=== PATIENT | female | born 1985 | race African-American/Black ===

== ENCOUNTER 2018-05-13 21:43 | Emergency (ER) | END 2018-05-13 22:39 | disposition left against medical advice (07) | LOC: ER 21:43 | DX: Z53.21 Procedure and treatment not carried out due to patient leaving prior to being seen by health care provider (principal) ==

== ENCOUNTER 2018-08-09 19:51 | Inpatient (IN) | payer BC, MEDICARE, MEDICAID ==
[2018-08-09] MEDS ORDERED: ACETAMINOPHEN 325 MG TABLET PO ONE (21:18)
[2018-08-09 21:42] LABS: INTERNATIONAL RATION (INR) 1.12
[2018-08-09 21:44] LABS: VENOUS BLOOD BASE EXCESS -1.5 mmol/L; VENOUS BLOOD HCO3 21.4 mmol/L (20-32); VENOUS BLOOD PCO2 30.5 mmHg (35-63); VENOUS BLOOD PH 7.46 (7.30-7.42)
[2018-08-09 21:44] LABS: ABSOLUTE LYMPHOCYTES (AUTO) 1.2 10^3/uL (0.5-4.7); ABSOLUTE MONOCYTES (AUTO) 0.7 10^3/uL (0.1-1.4); ABSOLUTE NEUT (AUTO) 8.1 10^3/uL (1.7-8.2); BASOPHILS % (AUTO) 0.1 % (0-2); HEMATOCRIT 36.6 % (36.0-47.0); HEMOGLOBIN 11.8 g/dL (12.0-15.5); LYMPHOCYTES % (AUTO) 11.7 % (13-45); MEAN CORPUSCULAR HEMOGLOBIN 26.6 pg (27.0-33.4); MEAN CORPUSCULAR HGB CONC 32.2 g/dL (32.0-36.0); MEAN CORPUSCULAR VOLUME 83 fl (80-97); MONOCYTES % (AUTO) 7.3 % (3-13); RED BLOOD COUNT 4.42 10^6/uL (3.72-5.28); RED CELL DISTRIBUTION WIDTH 14.3 % (11.5-14.0); SEGMENTED NEUTROPHILS % (AUTO) 80.9 % (42-78); TOTAL CELLS COUNTED % (AUTO) 100 %
[2018-08-09 21:45] LABS: APPEARANCE,URINE CLOUDY; BILIRUBIN,URINE NEGATIVE (NEGATIVE); COLOR,URINE AMBER; GLUCOSE, URINE NEGATIVE (NEGATIVE); KETONES,URINE NEGATIVE (NEGATIVE); LEUKOCYTE ESTERASE,URINE LARGE (NEGATIVE); NITRITE,URINE NEGATIVE (NEGATIVE); PROTEIN,URINE 100 mg/dL (NEGATIVE); URINE SPECIFIC GRAVITY 1.023
[2018-08-09 22:03] LABS: PLATELET COUNT 92 10^3/uL (150-450)
[2018-08-09 23:01] LABS: ALANINE AMINOTRANSFERASE 25 U/L (9-52); ALBUMIN 4.4 g/dL (3.5-5.0); ALKALINE PHOSPHATASE 84 U/L (38-126); ANION GAP 11 (5-19); ASPARTATE AMINO TRANSFERASE 17 U/L (14-36); BILIRUBIN,DIRECT 0.3 mg/dL (0.0-0.4); BILIRUBIN,TOTAL 1.3 mg/dL (0.2-1.3); BLOOD UREA NITROGEN 21 mg/dL (7-20); CARBON DIOXIDE 21 mmol/L (22-30); CHLORIDE 104 mmol/L (98-107); GLUCOSE 133 mg/dL (75-110); POTASSIUM 3.8 mmol/L (3.6-5.0); SODIUM 135.9 mmol/L (137-145); TOTAL PROTEIN 7.2 g/dL (6.3-8.2)
[2018-08-09] MEDS ORDERED: NORMAL SALINE 1000 ML 500 ML IV ONE (23:02)
[2018-08-09] MEDS ORDERED: CEFTRIAXONE 1 GM/D5W RTU 1 GM/50 ML RTUPB IV ONE (23:30)
[2018-08-09] MEDS ORDERED: ACETAMINOPHEN 325 MG TABLET ONE (23:37)
--- NOTE | 2018-08-10 01:34 | RADIOLOGY REPORT (SQ) ---
CLINICAL HISTORY: hematuria, pain COMPARISON: None. TECHNIQUE: CT ABDOMEN WITHOUT IV CONTRAST on 08/10/2018 12:17 AM CDT This exam was performed according to our departmental dose-optimization program, which includes automated exposure control, adjustment of the mA and/or kV according to patient size and/or use of iterative reconstruction technique. FINDINGS: Lung bases are clear. There is a small pericardial effusion. Abdomen: The liver is normal in appearance. There is no biliary dilatation. Gallbladder is normally distended. The pancreas and spleen are normal in appearance. Adrenal glands are normal. Kidneys are severely atrophic. There is a right lower quadrant renal transplant without hydronephrosis. There is mild nonspecific stranding surrounding the right renal transplant. Abdominal aorta is normal in course and caliber without aneurysm. There is no free air. There is no retroperitoneal adenopathy. Pelvis: There is no bowel obstruction. Urinary bladder is unremarkable. There is no free fluid. Uterus is somewhat poorly seen. Appendix is normal. Skeleton: There are no acute osseous findings. No suspicious bony lesions. IMPRESSION: Right renal transplant with mild nonspecific surrounding perinephric stranding. No convincing hydronephrosis or nephrolithiasis.
[2018-08-10] MEDS ORDERED: IPRATROPIUM/ALBUTEROL 0.5-2.5 MG/3 ML AMPUL NEB PRN (01:55)
[2018-08-10] MEDS ORDERED: HYDRALAZINE HCL INJ/PF 20 MG/1 ML SDV IV PRN (01:55)
[2018-08-10] MEDS ORDERED: ACETAMINOPHEN 325 MG TABLET PO PRN (01:55)
[2018-08-10] MEDS ORDERED: MAGNESIUM HYDROXIDE SUSP 30 ML UDCUP PO PRN (01:55)
[2018-08-10] MEDS ORDERED: MAG HYDROX/AL HYDROX/SIMETH SUSP 30 ML UDCUP PO PRN (01:55)
--- NOTE | 2018-08-10 01:56 | ER Document Report ---
ED General - General Chief Complaint: Urinary Problem Stated Complaint: URINATION ISSUES Time Seen by Provider: 08/09/18 21:17 Notes: Patient is a 32-year-old female presents to the emergency department for dysuria. Patient states she is a kidney transplant recipient. States she was transplanted July 2017 in [place]. States she follows up with Dr. castrejon mostly in [place] he is her assembler tester. [facility] she presented to [facility] this afternoon for generalized dysuria and was noted to have a temperature of 103.3. Was given 1 g of Tylenol and then sent to the emergency room. Patient states she has minor suprapubic tenderness but is denying any other pain. Past medical history: Kidney transplant, hypertension, lupus Medications: Carvedilol, prednisone, Valcyte, Prograt Allergies: None TRAVEL OUTSIDE OF THE [place] IN LAST 30 DAYS: No - Related Data Allergies/Adverse Reactions: No Known Allergies Allergy (Unverified 04/18/11 08:34) Past Medical History - General Information source: Patient - Social History Smoking Status: Never Smoker Frequency of alcohol use: None Drug Abuse: None Family History: DM, Hypertension Patient has suicidal ideation: No Patient has homicidal ideation: No - Past Medical History Cardiac Medical History: Reports: Hx Hypertension Denies: Hx Heart Attack Pulmonary Medical History: Denies: Hx Asthma Neurological Medical History: Denies: Hx Cerebrovascular Accident, Hx Seizures Renal/ Medical History: Denies: Hx Peritoneal Dialysis GI Medical History: Denies: Hx Hepatitis, Hx Hiatal Hernia, Hx Ulcer Infectious Medical History: Denies: Hx Hepatitis Past Surgical History: Reports: Hx Genitourinary Surgery - kidney transplant, Hx Gynecologic Surgery - Novasure procedure. Denies: Hx Mastectomy, Hx Open Heart Surgery, Hx Pacemaker - Immunizations Hx Diphtheria, Pertussis, Tetanus Vaccination: No Review of Systems - Review of Systems Constitutional: See HPI EENT: No symptoms reported Cardiovascular: No symptoms reported Respiratory: No symptoms reported Gastrointestinal: See HPI. denies: Vomiting Genitourinary: See HPI Female Genitourinary: See HPI Musculoskeletal: No symptoms reported Skin: No symptoms reported Hematologic/Lymphatic: No symptoms reported Neurological/Psychological: No symptoms reported Physical Exam - Vital signs Vitals: Temp Pulse Resp BP Pulse Ox 102.9 F H 100 16 134/80 H 100 08/09/18 19:51 08/09/18 19:51 08/09/18 19:51 08/09/18 19:51 08/09/18 19:51 - Notes Notes: GENERAL: Alert, interacts well. No acute distress. HEAD: Normocephalic, atraumatic. EYES: Pupils equal, round, and reactive to light. Extraocular movements intact. ENT: Oral mucosa moist, tongue midline. NECK: Full range of motion. Supple. Trachea midline. LUNGS: Clear to auscultation bilaterally, no wheezes, rales, or rhonchi. No respiratory distress. HEART: Regular rate and rhythm. No murmur ABDOMEN: Soft, non-tender. Non-distended. Bowel sounds present in all 4 quadrants. EXTREMITIES: Moves all 4 extremities spontaneously. No edema, normal radial and dorsalis pedis pulses bilaterally. No cyanosis. BACK: no cervical, thoracic, lumbar midline tenderness. No saddle anesthesia, normal distal neurovascular exam. NEUROLOGICAL: Alert and oriented x3. Normal speech. Minor suprapubic tenderness noted cranial nerves II through XII grossly intact PSYCH: Normal affect, normal mood. SKIN: Warm, dry, normal turgor. No rashes or lesions noted. Course - Re-evaluation Re-evalutation: Patient's labs show no signs of leukocytosis although she is on immunosuppressant therapy due to her kidney transplant. Patient states her typical creatinine is 2.5. Patient's labs today reveal a BUN of 21, creatinine 2.86, GFR 23. Patient's urine does show signs of infection. Discussed this case with assembler tester Dr. Muñoz who is agreeable that the patient can stay at this facility and does not need to be transferred to a transplant facility. Discussed this case with hospitalist Dr. Chance Barrera who will admit the patient. Despite patient being febrile she has been non-tachycardic or hypotensive the entire visit. She appears nontoxic and only complains of slight suprapubic tenderness. - Vital Signs Vital signs: Temp Pulse Resp BP Pulse Ox 100.0 F 96 20 124/86 H 100 08/10/18 02:22 08/10/18 01:07 08/10/18 02:21 08/10/18 02:21 08/10/18 02:21 - Laboratory Result Diagrams: 08/09/18 20:00 08/09/18 22:22 Laboratory results interpreted by me: 08/09/18 08/09/18 08/09/18 20:00 20:10 21:38 Hgb 11.8 L MCH 26.6 L RDW 14.3 H Plt Count 92 L Seg Neutrophils % 80.9 H Lymphocytes % 11.7 L VBG pH VBG pCO2 Sodium Carbon Dioxide BUN Creatinine Est GFR ( Amer) Est GFR (Non-Af Amer) Glucose Lactic Acid 0.5 L Urine Protein 100 H Urine Blood MODERATE H Urine Urobilinogen 2.0 H Ur Leukocyte Esterase LARGE H 08/09/18 08/09/18 21:38 22:22 Hgb MCH RDW Plt Count Seg Neutrophils % Lymphocytes % VBG pH 7.46 H VBG pCO2 30.5 L Sodium 135.9 L Carbon Dioxide 21 L BUN 21 H Creatinine 2.86 H Est GFR ( Amer) 23 L Est GFR (Non-Af Amer) 19 L Glucose 133 H Lactic Acid Urine Protein Urine Blood Urine Urobilinogen Ur Leukocyte Esterase Discharge - Discharge Clinical Impression: Pyelonephritis Condition: Stable Disposition: ADMITTED INPATIENT Admitting Provider: Hospitalist - Dr. Barrera Unit Admitted: TAIWO
[2018-08-10] MEDS ORDERED: VANCOMYCIN HCL 0 MG in DEXTROSE 5%-WATER 250 ML IV NR (02:00)
[2018-08-10] MEDS ORDERED: VANCOMYCIN HCL INJ 1000 MG VIAL IV PRN (02:26)
[2018-08-10] MEDS: NORMAL SALINE 1000 ML 1,000 ML IV PRN ×3 (03:59→12:30)
[2018-08-10] MEDS ORDERED: VANCOMYCIN HCL 1,000 MG in DEXTROSE 5%-WATER 250 ML IV ONE (04:00)
--- NOTE | 2018-08-10 04:45 | PDOC H&P ---
History of Present Illness Admission Date/PCP: 08/10/18 02:05 Patient complains of: Painful urination History of Present Illness: LOLA MURILLO is a 32 year old female with a past medical history of lupus, hypertension and renal failure requiring transplant July 2017 in [place]. Immunocompromised on CellCept, Prograf and prednisone. Developing 48 hours of pain and burning on urination and dull, 2 out of 5 right lower quadrant pain without radiation. In the emergency room she is found with hypotension, tachycardia, fever of 102.9, acute renal failure with a GFR of only 23 from a baseline of 34. CT abdomen pelvis reveals pyelonephritis of transplanted kidney without evidence of stone, hydronephrosis or obstruction. She receives empiric antibiotics and referred to the hospitalist for admission. Patient denies recent antibiotic use and is otherwise been feeling well. Past Medical History Cardiac Medical History: Reports: Hypertension Denies: Myocardial Infarction Pulmonary Medical History: Denies: Asthma Neurological Medical History: Denies: Seizures Renal/ Medical History: Reports: Chronic Kidney Disease GI Medical History: Denies: Hepatitis, Hiatal Hernia Psychiatric Medical History: Reports: None Denies: Alcohol Dependency, Tobacco Dependency Hematology: Denies: Anemia, Sickle Cell Disease Past Surgical History Past Surgical History: Denies: Amputation, Mastectomy, Pacemaker Social History Information Source: Patient, [facility] Records Smoking Status: Never Smoker Frequency of Alcohol Use: None Drugs: None - Advance Directive Resuscitation Status: Full Code Family History Family History: DM, Hypertension Parental Family History Reviewed: Yes Children Family History Reviewed: Yes Sibling(s) Family History Reviewed.: Yes Medication/Allergy Home Medications: Calcium Carbonate/Vitamin D3 [Oyster Shell Calcium-Vit D Tab] 1 each PO DAILY 04/18/11 Ferrous Sulfate [Iron] 325 mg PO DAILY 04/18/11 Mycophenolate Mofetil [Cellcept] 1,000 mg PO BID 04/18/11 Prednisone [Deltasone 20 Mg Tablet] 60 mg PO BID 04/18/11 Zolpidem Tartrate [Ambien] 5 mg PO HSP PRN 04/18/11 Amlodipine Besylate [Norvasc 5 mg Tablet] 5 mg PO DAILY 10/20/11 Azithromycin [Zithromax] 500 mg PO DAILY #4 tab 12/31/12 Metronidazole [Flagyl 500 mg Tablet] 500 mg PO TID #30 tablet 12/31/12 Ibuprofen [Motrin 600 Mg Tablet] 600 mg PO TID #30 tablet 03/06/13 Ondansetron [Zofran Odt 4 mg Tablet] 1 - 2 tab PO Q4H PRN #20 tab.rapdis 03/06/13 Hydrocodone Bit/Acetaminophen [Vicodin 5-500 mg Tablet] 1 tab PO ASDIR PRN #10 tablet 05/12/13 Dicyclomine HCl [Bentyl 20 mg Tablet] 20 mg PO QID #120 tablet 07/07/13 Ondansetron [Zofran Odt 4 mg Tablet] 1 - 2 tab PO Q4H PRN #15 tab.rapdis 07/07/13 Allergies/Adverse Reactions: No Known Allergies Allergy (Unverified 04/18/11 08:34) Review of Systems Constitutional: ABSENT: chills, fever(s), headache(s), weight gain, weight loss Eyes: ABSENT: visual disturbances Ears: ABSENT: hearing changes Cardiovascular: ABSENT: chest pain, dyspnea on exertion, edema, orthropnea, palpitations Respiratory: ABSENT: cough, hemoptysis Gastrointestinal: ABSENT: abdominal pain, constipation, diarrhea, hematemesis, hematochezia, nausea, vomiting Genitourinary: ABSENT: dysuria, hematuria Musculoskeletal: ABSENT: joint swelling Integumentary: ABSENT: rash, wounds Neurological: ABSENT: abnormal gait, abnormal speech, confusion, dizziness, focal weakness, syncope Psychiatric: ABSENT: anxiety, depression, homidical ideation, suicidal ideation Endocrine: ABSENT: cold intolerance, heat intolerance, polydipsia, polyuria Hematologic/Lymphatic: ABSENT: easy bleeding, easy bruising Physical Exam Vital Signs: Temp Pulse Resp BP Pulse Ox 100.0 F 96 20 124/86 H 100 08/10/18 02:22 08/10/18 01:07 08/10/18 02:21 08/10/18 02:21 08/10/18 02:21 Intake & Output 08/08/18 08/09/18 08/10/18 11:59 11:59 11:59 Intake Total 550 Balance 550 Weight 91.6 kg General appearance: PRESENT: cooperative, mild distress. ABSENT: obese Head exam: PRESENT: atraumatic, normocephalic Eye exam: PRESENT: conjunctiva pink, EOMI, PERRLA. ABSENT: scleral icterus Ear exam: PRESENT: normal external ear exam Mouth exam: PRESENT: dry mucosa, tongue midline Neck exam: ABSENT: carotid bruit, JVD, lymphadenopathy, thyromegaly Respiratory exam: PRESENT: clear to auscultation edis. ABSENT: rales, rhonchi, wheezes Cardiovascular exam: PRESENT: RRR. ABSENT: diastolic murmur, rubs, systolic murmur Pulses: PRESENT: normal dorsalis pedis pul Vascular exam: PRESENT: normal capillary refill GI/Abdominal exam: PRESENT: normal bowel sounds, soft. ABSENT: distended, guarding, mass, organolmegaly, rebound, tenderness Rectal exam: PRESENT: deferred Extremities exam: PRESENT: full ROM. ABSENT: calf tenderness, clubbing, pedal edema Neurological exam: PRESENT: alert, awake, oriented to person, oriented to place, oriented to time, oriented to situation, CN II-XII grossly intact. ABSENT: motor sensory deficit Psychiatric exam: PRESENT: appropriate affect, normal mood. ABSENT: homicidal ideation, suicidal ideation Skin exam: PRESENT: dry, intact, warm. ABSENT: cyanosis, rash Results Laboratory Results: 08/09/18 20:00 08/09/18 22:22 08/09/18 08/09/18 08/09/18 20:00 20:00 20:10 WBC 10.0 RBC 4.42 Hgb 11.8 L Hct 36.6 MCV 83 MCH 26.6 L MCHC 32.2 RDW 14.3 H Plt Count 92 L Seg Neutrophils % 80.9 H Lymphocytes % 11.7 L Monocytes % 7.3 Eosinophils % 0.0 Basophils % 0.1 Absolute Neutrophils 8.1 Absolute Lymphocytes 1.2 Absolute Monocytes 0.7 Absolute Eosinophils 0.0 Absolute Basophils 0.0 VBG pH VBG pCO2 VBG HCO3 VBG Base Excess Sodium Cancelled Potassium Cancelled Chloride Cancelled Carbon Dioxide Cancelled Anion Gap Cancelled BUN Cancelled Creatinine Cancelled Est GFR ( Amer) Cancelled Est GFR (Non-Af Amer) Cancelled Glucose Cancelled Lactic Acid Calcium Cancelled Total Bilirubin Cancelled AST Cancelled ALT Cancelled Alkaline Phosphatase Cancelled Total Protein Cancelled Albumin Cancelled Urine Color PATTI Urine Appearance CLOUDY Urine pH 5.0 Ur Specific [place] 1.023 Urine Protein 100 H Urine Glucose (UA) NEGATIVE Urine Ketones NEGATIVE Urine Blood MODERATE H Urine Nitrite NEGATIVE Ur Leukocyte Esterase LARGE H Urine WBC (Auto) >182 Urine RBC (Auto) 14 08/09/18 08/09/18 08/09/18 21:38 21:38 22:22 WBC RBC Hgb Hct MCV MCH MCHC RDW Plt Count Seg Neutrophils % Lymphocytes % Monocytes % Eosinophils % Basophils % Absolute Neutrophils Absolute Lymphocytes Absolute Monocytes Absolute Eosinophils Absolute Basophils VBG pH 7.46 H VBG pCO2 30.5 L VBG HCO3 21.4 VBG Base Excess -1.5 Sodium 135.9 L Potassium 3.8 Chloride 104 Carbon Dioxide 21 L Anion Gap 11 BUN 21 H Creatinine 2.86 H Est GFR ( Amer) 23 L Est GFR (Non-Af Amer) 19 L Glucose 133 H Lactic Acid 0.5 L Calcium 10.0 Total Bilirubin 1.3 AST 17 ALT 25 Alkaline Phosphatase 84 Total Protein 7.2 Albumin 4.4 Urine Color Urine Appearance Urine pH Ur Specific [place] Urine Protein Urine Glucose (UA) Urine Ketones Urine Blood Urine Nitrite Ur Leukocyte Esterase Urine WBC (Auto) Urine RBC (Auto) 08/10/18 03:42 WBC RBC Hgb Hct MCV MCH MCHC RDW Plt Count Seg Neutrophils % Lymphocytes % Monocytes % Eosinophils % Basophils % Absolute Neutrophils Absolute Lymphocytes Absolute Monocytes Absolute Eosinophils Absolute Basophils VBG pH VBG pCO2 VBG HCO3 VBG Base Excess Sodium Potassium Chloride Carbon Dioxide Anion Gap BUN Creatinine Est GFR ( Amer) Est GFR (Non-Af Amer) Glucose Lactic Acid 0.7 Calcium Total Bilirubin AST ALT Alkaline Phosphatase Total Protein Albumin Urine Color Urine Appearance Urine pH Ur Specific [place] Urine Protein Urine Glucose (UA) Urine Ketones Urine Blood Urine Nitrite Ur Leukocyte Esterase Urine WBC (Auto) Urine RBC (Auto) Impressions: Abdomen CT 08/10/18 00:17 IMPRESSION: Right renal transplant with mild nonspecific surrounding perinephric stranding. No convincing hydronephrosis or nephrolithiasis. Assessment & Plan - Diagnosis (1) Pyelonephritis Is this a current diagnosis for this admission?: Yes Plan: Complicated by transplant kidney and sepsis, no evidence of obstruction, vancomycin and Rocephin, IV fluid challenge ordered, follow-up blood and urine culture (2) Sepsis Is this a current diagnosis for this admission?: Yes Plan: Secondary to #1, pressors as needed following IV fluid resuscitation (3) Transplant glomerulopathy of transplanted kidney Is this a current diagnosis for this admission?: Yes Plan: Continue CellCept, Prograf and prednisone, nephrology consulted (4) Immunocompromised state due to drug therapy Is this a current diagnosis for this admission?: Yes Plan: Soham as needed - Time Time Spent: 50 to 70 Minutes - Inpatient Certification Medical Necessity: Need Close Monitoring Due to Risk of Patient Decompensation
[2018-08-10] MEDS ORDERED: CEFTRIAXONE 1 GM/D5W RTU 1 GM/50 ML RTUPB IV SCH (06:00)
[2018-08-10] MEDS: HYDROCORTISONE SOD SUCCINATE INJ/PF 100 MG/2 ML SDV IV SCH ×3 (06:08→21:38)
[2018-08-10] MEDS: HEPARIN SOD (PORCINE) 5,000 UNIT/ML 1 ML SYRINGE SUBCUT SCH ×3 (06:13→21:39)
[2018-08-10] MEDS ORDERED: AMLODIPINE BESYLATE 5 MG TABLET PO SCH (10:00)
[2018-08-10] MEDS ORDERED: PREDNISONE 20 MG TABLET PO SCH (10:00)
[2018-08-10] MEDS ORDERED: CALCIUM CARBONATE 250 MG/VITAMIN D3 125 UNIT TABLET PO SCH (10:00)
[2018-08-10] MEDS ORDERED: MYCOPHENOLATE MOFETIL 250 MG CAPSULE PO SCH ×2 (10:00)
[2018-08-10] MEDS ORDERED: DICYCLOMINE HCL 20 MG TABLET PO SCH (10:00)
--- NOTE | 2018-08-10 14:51 | Progress Note ---
Provider Note Provider Note: This is a very pleasant 32 years old black female patient with past medical history of systemic lupus erythematosus, hypertension and end-stage renal disease due to the lupus which necessitates renal transplant happened in July 2017. Patient presented with 1 day history of dysuria. At presentation patient was tachycardic, febrile with T-max of 102.9 and hypotension. She also noticed to have increased in her creatinine and BUN level. Her CT scan of the abdomen reported as right renal transplant with mild nonspecific surrounding perinephric stranding. I seen patient this morning in ER she is resting and she limited the dysuria and the frequency of her urination has decreased. Accept this patient and I will be her primary attending.
[2018-08-10] MEDS: CEFEPIME HCL 2 GM in DEXTROSE 5%-WATER 50 ML IV SCH (18:23)
[2018-08-10] MEDS: CARVEDILOL 12.5 MG TABLET PO SCH (21:39)
[2018-08-10] MEDS: TACROLIMUS ANHYDROUS 1 MG CAPSULE PO SCH (21:39)
[2018-08-10] MEDS ORDERED: CEFEPIME 2 GM/D5W RTU 2 GM/50 ML RTUPB IV SCH (22:00)
[2018-08-10] MEDS ORDERED: TACROLIMUS 5 MG PO SCH (22:00)
--- NOTE | 2018-08-10 22:47 | PDOC CONSULTATION ---
Consultation Consult Date: 08/10/18 Attending physician:: JEANMARIE SERRATO Consult reason:: I was asked to see this patient due to abnormal kidney function in a kidney transplant patient. History of Present Illness Admission Date/PCP: 08/10/18 02:05 History of Present Illness: LOLA MURILLO is a 32 year old female with history of living related kidney transplant, hypertension and lupus who was admitted yesterday because of dysuria. Patient had living related kidney transplant from her mother at [facility] in [facility] July 22, 2017. She moved here in [place] in December 2017 after her divorce. States that her baseline kidney function consists of creatinine of 2.5. She follows up with patient escort Dr. Villeda in [place]. He denies any history of rejection. So about 48 hours prior to admission she experienced dysuria severe pain enough for her to go to the emergency room. She describes a significant suprapubic pain, fever of 103.3, chills, and fatigue to admission. She denies any pain over her right kidney transplant graft. She said yesterday she slept the whole day. She denies any nausea or vomiting. On admission she has a BUN of 21, creatinine of 2.86. Her urine culture grew gram-negative rods. Abdominal CT scan shows nonspecific perinephric stranding around the right kidney transplant. She is currently feeling better now compared to yesterday after IV fluid hydration and initiation of antibiotics. Past Medical History Cardiac Medical History: Reports: Hypertension-primary Renal/ Medical History: Reports: Chronic Kidney Disease Stage V, Renal Transplant, Other - History of lupus nephritis Past Surgical History Past Surgical History: Reports: Renal Transplant Social History Information Source: Patient Lives with: Family Smoking Status: Never Smoker Frequency of Alcohol Use: None Drugs: None - Advance Directive Resuscitation Status: Full Code Family History Family History: DM - On maternal side of the family, Hypertension - Father Parental Family History Reviewed: Yes Children Family History Reviewed: Yes Sibling(s) Family History Reviewed.: Yes Medication/Allergy Home Medications: Prednisone [Deltasone 20 Mg Tablet] 10 mg PO DAILY 04/18/11 Carvedilol [Coreg 12.5 mg Tablet] 25 mg PO Q12 08/10/18 Mycophenolate Mofetil [Cellcept 250 mg Capsule] 250 mg PO Q12 08/10/18 Tacrolimus [Prograf] 1 mg PO DAILY MDD TAKE WITH 5 MG 08/10/18 Tacrolimus [Prograf] 5 mg PO Q12 08/10/18 Valganciclovir HCl 450 mg PO DAILY 08/10/18 Allergies/Adverse Reactions: No Known Allergies Allergy (Unverified 04/18/11 08:34) Review of Systems All systems: reviewed and no additional remarkable complaints except as stated Review of Systems: Constitutional: ABSENT: Headache(s), weight gain, weight loss; admits fever, chills and fatigue Eyes: ABSENT: visual disturbances Ears: ABSENT: hearing changes Cardiovascular: ABSENT: chest pain, dyspnea on exertion, edema, orthropnea, palpitations Respiratory: ABSENT: cough, dyspnea, hemoptysis Gastrointestinal: ABSENT: abdominal pain, constipation, diarrhea, hematemesis, hematochezia, nausea, vomiting Genitourinary: ABSENT: Hematuria; admits dysuria and suprapubic pain Musculoskeletal: ABSENT: joint swelling Integumentary: ABSENT: rash, wounds Neurological: ABSENT: abnormal gait, abnormal speech, confusion, dizziness, focal weakness, numbness, syncope Psychiatric: ABSENT: anxiety, depression Endocrine: ABSENT: cold intolerance, heat intolerance, polydipsia, polyuria Hematologic/Lymphatic: ABSENT: easy bleeding, easy bruising, lymphadenopathy Physical Exam Vital Signs: Temp Pulse Resp BP Pulse Ox 98.7 F 100 20 165/95 H 100 08/10/18 21:48 08/10/18 08:08 08/10/18 21:48 08/10/18 21:48 08/10/18 21:48 Intake & Output 08/09/18 08/10/18 08/11/18 06:59 06:59 06:59 Intake Total 1849 2049 Balance 1849 2049 Weight 91.6 kg Exam: General appearance: No acute distress, cooperative, well-developed, well- nourished Head exam: PRESENT: atraumatic, normocephalic Eye exam: PRESENT: Conjunctiva [place], EOMI, PERRLA. ABSENT: conjunctival injection, scleral icterus Mouth exam: PRESENT: moist, neck supple, tongue midline Neck exam: PRESENT: full ROM. ABSENT: carotid bruit, JVD, lymphadenopathy, thyromegaly Respiratory exam: PRESENT: clear to auscultation bilaterally. ABSENT: rales, rhonchi, stridor, wheezes Cardiovascular exam: PRESENT: RRR, +S1, +S2. ABSENT: systolic murmur Pulses: PRESENT: normal radial pulses, normal dorsalis pedis pulses GI/Abdominal exam: PRESENT: normal bowel sounds, soft. Positive suprapubic ten derness mild tenderness over the right kidney graft on the right lower quadrant area ABSENT: guarding, mass Rectal exam: Deferred Extremities exam: PRESENT: full ROM. ABSENT: calf tenderness, pedal edema Musculoskeletal: PRESENT: full ROM. ABSENT: deformity Neurological exam: PRESENT: alert, Awake, Oriented to person, Oriented to place, Oriented to time, reflexes normal, CN II-XII grossly intact. ABSENT: motor sensory deficit Psychiatric exam: PRESENT: appropriate affect, normal mood. ABSENT: homicidal ideation, suicidal ideation Skin exam: PRESENT: intact, dry, warm. ABSENT: rash Results Laboratory Results: 08/09/18 20:00 08/09/18 22:22 08/09/18 08/10/18 22:22 03:42 Sodium 135.9 L Potassium 3.8 Chloride 104 Carbon Dioxide 21 L Anion Gap 11 BUN 21 H Creatinine 2.86 H Est GFR ( Amer) 23 L Est GFR (Non-Af Amer) 19 L Glucose 133 H Lactic Acid 0.7 Calcium 10.0 Total Bilirubin 1.3 AST 17 ALT 25 Alkaline Phosphatase 84 Total Protein 7.2 Albumin 4.4 Impressions: Abdomen CT 08/10/18 00:17 IMPRESSION: Right renal transplant with mild nonspecific surrounding perinephric stranding. No convincing hydronephrosis or nephrolithiasis. Assessment & Plan - Diagnosis (1) Pyelonephritis Is this a current diagnosis for this admission?: Yes Plan: Possibly mild over the right kidney transplant graft. Continue IV antibiotics. (2) Acute cystitis Is this a current diagnosis for this admission?: Yes Plan: Agree with cefepime. (3) Acute kidney injury Is this a current diagnosis for this admission?: Yes Plan: Likely due to prerenal factors including volume depletion. Encourage oral fluid intake. Doubt any acute rejection. (4) Kidney replaced by transplant Is this a current diagnosis for this admission?: Yes Plan: Living related transplant from her mother. (5) Immunocompromised state due to drug therapy Is this a current diagnosis for this admission?: Yes Plan: Continue CellCept, Prograf and prednisone. - Notes Notes: Thank you very much for this consultation. We will follow patient with you. - Time Time Spent: 50 to 70 Minutes
[2018-08-11 05:10] LABS: ABSOLUTE LYMPHOCYTES (AUTO) 0.7 10^3/uL (0.5-4.7); ABSOLUTE MONOCYTES (AUTO) 0.3 10^3/uL (0.1-1.4); ABSOLUTE NEUT (AUTO) 5.6 10^3/uL (1.7-8.2); BASOPHILS % (AUTO) 0.1 % (0-2); HEMATOCRIT 34.6 % (36.0-47.0); HEMOGLOBIN 11.4 g/dL (12.0-15.5); MEAN CORPUSCULAR HEMOGLOBIN 26.5 pg (27.0-33.4); MEAN CORPUSCULAR VOLUME 80 fl (80-97); MONOCYTES % (AUTO) 4.2 % (3-13); RED BLOOD COUNT 4.32 10^6/uL (3.72-5.28); SEGMENTED NEUTROPHILS % (AUTO) 85.7 % (42-78); TOTAL CELLS COUNTED % (AUTO) 100 %; WHITE BLOOD COUNT 6.6 10^3/uL (4.0-10.5)
[2018-08-11] MEDS ORDERED: VANCOMYCIN HCL INJ 1000 MG VIAL ONE (05:21)
[2018-08-11 05:24] LABS: ANION GAP 14 (5-19); BLOOD UREA NITROGEN 22 mg/dL (7-20); CALCIUM 10.5 mg/dL (8.4-10.2); CARBON DIOXIDE 19 mmol/L (22-30); CHLORIDE 108 mmol/L (98-107); GLUCOSE 147 mg/dL (75-110); POTASSIUM 3.4 mmol/L (3.6-5.0); SODIUM 140.7 mmol/L (137-145)
[2018-08-11] MEDS: VANCOMYCIN HCL 1,000 MG in DEXTROSE 5%-WATER 250 ML IV SCH (06:23)
[2018-08-11] MEDS: HEPARIN SOD (PORCINE) 5,000 UNIT/ML 1 ML SYRINGE SUBCUT SCH ×3 (06:24→22:26)
[2018-08-11 07:27] LABS: PLATELET COUNT 83 10^3/uL (150-450)
[2018-08-11 07:32] LABS: PLATELET COMMENT ADEQUATE
[2018-08-11] MEDS: PREDNISONE 10 MG TABLET PO SCH (09:22)
[2018-08-11] MEDS: CARVEDILOL 12.5 MG TABLET PO SCH ×2 (09:22→22:25)
[2018-08-11] MEDS: MYCOPHENOLATE MOFETIL 250 MG CAPSULE PO SCH ×2 (09:31→22:25)
[2018-08-11] MEDS: TACROLIMUS ANHYDROUS 1 MG CAPSULE PO SCH ×2 (09:31→22:24)
[2018-08-11] MEDS ORDERED: VALGANCICLOVIR HCL 450 MG PO SCH (10:00)
--- NOTE | 2018-08-11 15:01 | PDOC PROGRESS REPORT ---
Subjective Progress Note for:: 08/11/18 Subjective:: No adverse events overnight. No new complaints. Vital signs been stable. Appetite has been poor but she says it is improving to a and she feels like she is going to be able to eat her entire lunch. She denies any flank pain or dysuria. Reason For Visit: RENAL TRANSPLANT WITH PYELO AND ARF Physical Exam Vital Signs: Temp Pulse Resp BP Pulse Ox 98.5 F 78 16 142/86 H 100 08/11/18 11:16 08/11/18 11:16 08/11/18 11:16 08/11/18 11:16 08/11/18 11:16 Intake & Output 08/10/18 08/11/18 08/12/18 06:59 06:59 06:59 Intake Total 1850 2050 250 Output Total 900 Balance 1850 1150 250 Weight 91.6 kg 98.5 kg General appearance: PRESENT: no acute distress, cooperative, disheveled, morbidly obese Respiratory exam: PRESENT: clear to auscultation edis, symmetrical, unlabored. ABSENT: accessory muscle use, prolonged expiratory phas, rales, rhonchi, tachypnea, wheezes Cardiovascular exam: PRESENT: RRR, +S1, +S2 Pulses: PRESENT: normal carotid pulses Vascular exam: PRESENT: normal capillary refill GI/Abdominal exam: PRESENT: normal bowel sounds, soft. ABSENT: distended, guarding, rebound, tenderness Extremities exam: ABSENT: clubbing, pedal edema Musculoskeletal exam: PRESENT: normal inspection. ABSENT: deformity Neurological exam: PRESENT: alert, awake, oriented to person, oriented to place, oriented to time, oriented to situation Psychiatric exam: PRESENT: appropriate affect, normal mood Skin exam: PRESENT: dry, warm Results Laboratory Results: 08/11/18 04:10 08/11/18 04:10 08/11/18 08/11/18 08/11/18 04:10 04:10 04:10 WBC 6.6 RBC 4.32 Hgb 11.4 L Hct 34.6 L MCV 80 MCH 26.5 L MCHC 33.0 RDW 14.0 Plt Count 83 L Seg Neutrophils % 85.7 H Lymphocytes % 10.0 L Monocytes % 4.2 Eosinophils % 0.0 Basophils % 0.1 Absolute Neutrophils 5.6 Absolute Lymphocytes 0.7 Absolute Monocytes 0.3 Absolute Eosinophils 0.0 Absolute Basophils 0.0 Sodium 140.7 Potassium 3.4 L Chloride 108 H Carbon Dioxide 19 L Anion Gap 14 BUN 22 H Creatinine 2.28 H Est GFR ( Amer) 30 L Est GFR (Non-Af Amer) 25 L Glucose 147 H Calcium 10.5 H Ionized Calcium Rai Phosphorus 2.4 L PTH Intact 08/11/18 08/11/18 09:39 09:39 WBC RBC Hgb Hct MCV MCH MCHC RDW Plt Count Seg Neutrophils % Lymphocytes % Monocytes % Eosinophils % Basophils % Absolute Neutrophils Absolute Lymphocytes Absolute Monocytes Absolute Eosinophils Absolute Basophils Sodium Potassium Chloride Carbon Dioxide Anion Gap BUN Creatinine Est GFR ( Amer) Est GFR (Non-Af Amer) Glucose Calcium Ionized Calcium Rai 1.32 H Phosphorus PTH Intact 80.5 H Impressions: Abdomen CT 08/10/18 00:17 IMPRESSION: Right renal transplant with mild nonspecific surrounding perinephric stranding. No convincing hydronephrosis or nephrolithiasis. Assessment & Plan - Diagnosis (1) Sepsis Qualifiers: Sepsis type: sepsis due to unspecified organism Qualified Code(s): A41.9 - Sepsis, unspecified organism Is this a current diagnosis for this admission?: Yes Plan: Due to pyelonephritis. On cefepime. Urine culture is pending. She is clinica lly improved overall. Sepsis has resolved. (2) Pyelonephritis Is this a current diagnosis for this admission?: Yes Plan: Currently on cefepime, clinically improving. Urine cultures pending. (3) Acute kidney injury Is this a current diagnosis for this admission?: Yes Plan: Improved with IV fluids (4) Kidney replaced by transplant Is this a current diagnosis for this admission?: Yes Plan: Followed by nephrology. No issues at this time. - Time Time Spent with patient: 25-34 minutes
[2018-08-11] MEDS: CEFEPIME HCL 2 GM in DEXTROSE 5%-WATER 50 ML IV SCH (17:39)
--- NOTE | 2018-08-11 21:19 | PDOC PROGRESS REPORT ---
Subjective Progress Note for:: 08/11/18 Subjective:: Patient is feeling much better today. She denies any more suprapubic pain. Dysuria is almost resolved. She is able to eat. Reason For Visit: RENAL TRANSPLANT WITH PYELO AND ARF Physical Exam Vital Signs: Temp Pulse Resp BP Pulse Ox 98.1 F 71 20 139/94 H 100 08/11/18 16:29 08/11/18 16:29 08/11/18 16:29 08/11/18 16:29 08/11/18 16:29 Intake & Output 08/10/18 08/11/18 08/12/18 06:59 06:59 06:59 Intake Total 1850 2050 1555 Output Total 900 1000 Balance 1850 1150 555 Weight 91.6 kg 98.5 kg Exam: General appearance: PRESENT: no acute distress, cooperative, well-developed, well-nourished Head exam: PRESENT: atraumatic, normocephalic Eye exam: PRESENT: conjunctiva pink, PERRLA. ABSENT: scleral icterus Neck exam: ABSENT: JVD Respiratory exam: PRESENT: Normal breath sounds. ABSENT: crackles, rales, rhonchi, unlabored, wheezes Cardiovascular exam: PRESENT: Regular rate rhythm -+S1, +S2. ABSENT: diastolic murmur, systolic murmur GI/Abdominal exam: PRESENT: normal bowel sounds, soft. ABSENT: guarding, mass, tenderness over the bladder and the right kidney graft Extremities exam: ABSENT: No edema Neurological exam: PRESENT: alert, awake, oriented to person, place and time. Skin exam: PRESENT: dry, warm, Results Laboratory Results: 08/11/18 04:10 08/11/18 04:10 08/11/18 08/11/18 08/11/18 04:10 04:10 04:10 WBC 6.6 RBC 4.32 Hgb 11.4 L Hct 34.6 L MCV 80 MCH 26.5 L MCHC 33.0 RDW 14.0 Plt Count 83 L Seg Neutrophils % 85.7 H Lymphocytes % 10.0 L Monocytes % 4.2 Eosinophils % 0.0 Basophils % 0.1 Absolute Neutrophils 5.6 Absolute Lymphocytes 0.7 Absolute Monocytes 0.3 Absolute Eosinophils 0.0 Absolute Basophils 0.0 Sodium 140.7 Potassium 3.4 L Chloride 108 H Carbon Dioxide 19 L Anion Gap 14 BUN 22 H Creatinine 2.28 H Est GFR ( Amer) 30 L Est GFR (Non-Af Amer) 25 L Glucose 147 H Calcium 10.5 H Ionized Calcium Rai Phosphorus 2.4 L PTH Intact 08/11/18 08/11/18 09:39 09:39 WBC RBC Hgb Hct MCV MCH MCHC RDW Plt Count Seg Neutrophils % Lymphocytes % Monocytes % Eosinophils % Basophils % Absolute Neutrophils Absolute Lymphocytes Absolute Monocytes Absolute Eosinophils Absolute Basophils Sodium Potassium Chloride Carbon Dioxide Anion Gap BUN Creatinine Est GFR ( Amer) Est GFR (Non-Af Amer) Glucose Calcium Ionized Calcium Rai 1.32 H Phosphorus PTH Intact 80.5 H Impressions: Abdomen CT 08/10/18 00:17 IMPRESSION: Right renal transplant with mild nonspecific surrounding perinephric stranding. No convincing hydronephrosis or nephrolithiasis. Assessment & Plan - Diagnosis (1) Pyelonephritis Is this a current diagnosis for this admission?: Yes Plan: Due to gram-negative rods. Continue cefepime. Likely may not need vancomycin any further. (2) Acute cystitis Is this a current diagnosis for this admission?: Yes (3) Acute kidney injury Is this a current diagnosis for this admission?: Yes Plan: Due to prerenal factors currently at baseline kidney function. (4) Kidney replaced by transplant Is this a current diagnosis for this admission?: Yes Plan: From a living donor from her mother. (5) Immunocompromised state due to drug therapy Is this a current diagnosis for this admission?: Yes Plan: Continue immunosuppressive medications. (6) Hypercalcemia Is this a current diagnosis for this admission?: Yes Plan: Previously normal but is now elevated associated with hyperparathyroidism. (7) Hyperparathyroidism Is this a current diagnosis for this admission?: Yes Plan: Primary versus secondary hyperparathyroidism but presentation favors Primary rather than the latter. Possible to be due to vitamin D deficiency. Labs should be repeated as an outpatient and treat accordingly. (8) Vitamin D deficiency Is this a current diagnosis for this admission?: Yes (9) Hypophosphatemia Is this a current diagnosis for this admission?: Yes - Time Time with patient: 15-25 minutes
[2018-08-12 05:16] LABS: ABSOLUTE LYMPHOCYTES (AUTO) 1.4 10^3/uL (0.5-4.7); ABSOLUTE MONOCYTES (AUTO) 0.4 10^3/uL (0.1-1.4); ABSOLUTE NEUT (AUTO) 3.7 10^3/uL (1.7-8.2); BASOPHILS % (AUTO) 0.1 % (0-2); HEMATOCRIT 36.6 % (36.0-47.0); HEMOGLOBIN 11.9 g/dL (12.0-15.5); LYMPHOCYTES % (AUTO) 26.2 % (13-45); MEAN CORPUSCULAR HEMOGLOBIN 26.2 pg (27.0-33.4); MEAN CORPUSCULAR HGB CONC 32.6 g/dL (32.0-36.0); MEAN CORPUSCULAR VOLUME 81 fl (80-97); MONOCYTES % (AUTO) 6.8 % (3-13); PLATELET COUNT 103 10^3/uL (150-450); RED BLOOD COUNT 4.54 10^6/uL (3.72-5.28); RED CELL DISTRIBUTION WIDTH 14.3 % (11.5-14.0); SEGMENTED NEUTROPHILS % (AUTO) 66.9 % (42-78); TOTAL CELLS COUNTED % (AUTO) 100 %; WHITE BLOOD COUNT 5.5 10^3/uL (4.0-10.5)
[2018-08-12 05:41] LABS: ANION GAP 9 (5-19); BLOOD UREA NITROGEN 25 mg/dL (7-20); CALCIUM 10.4 mg/dL (8.4-10.2); CARBON DIOXIDE 23 mmol/L (22-30); CHLORIDE 108 mmol/L (98-107); GLUCOSE 99 mg/dL (75-110); POTASSIUM 3.2 mmol/L (3.6-5.0); SODIUM 140.1 mmol/L (137-145)
[2018-08-12] MEDS: HEPARIN SOD (PORCINE) 5,000 UNIT/ML 1 ML SYRINGE SUBCUT SCH ×2 (05:41→13:01)
[2018-08-12] MEDS: VANCOMYCIN HCL 1,000 MG in DEXTROSE 5%-WATER 250 ML IV SCH (05:43)
[2018-08-12] MEDS: TACROLIMUS ANHYDROUS 1 MG CAPSULE PO SCH (10:04)
[2018-08-12] MEDS: PREDNISONE 10 MG TABLET PO SCH (10:05)
[2018-08-12] MEDS: MYCOPHENOLATE MOFETIL 250 MG CAPSULE PO SCH (10:05)
[2018-08-12] MEDS: CARVEDILOL 12.5 MG TABLET PO SCH (10:05)
[2018-08-12] MEDS ORDERED: POTASSIUM CHLORIDE 10 MEQ CAPSULE.ER PO ONE (11:29)
[2018-08-12 12:24] VITALS: BP 158/89
--- NOTE | 2018-08-12 17:28 | PDOC DISCHARGE SUMMARY ---
General - Admit/Disc Date/PCP Admission Date/Primary Care Provider: 08/10/18 02:05 Discharge Date: 08/12/18 - Discharge Diagnosis (1) Sepsis Is this a current diagnosis for this admission?: Yes Summary: Resolved with antibiotics, this was due to UTI (2) Pyelonephritis Is this a current diagnosis for this admission?: Yes Summary: She grew out a fairly sensitive E. coli in her urine. We will treat her with p.o. Vantin. (3) Acute kidney injury Is this a current diagnosis for this admission?: Yes Summary: This resolved with IV fluids and treatment of her infection (4) Kidney replaced by transplant Is this a current diagnosis for this admission?: Yes Summary: She follows with [facility] in [place] - Additional Information Resuscitation Status: Full Code Discharge Diet: Cardiac Discharge Activity: Activity As Tolerated, Balance Activity w/Rest Prescriptions: Cefpodoxime Proxetil [Vantin 200 Mg Tablet] 200 mg PO DAILY #10 tablet Home Medications: Prednisone [Deltasone 20 mg Tablet] 10 mg PO DAILY 04/18/11 Carvedilol [Coreg 12.5 mg Tablet] 25 mg PO Q12 08/10/18 Mycophenolate Mofetil [Cellcept 250 mg Capsule] 250 mg PO Q12 08/10/18 Tacrolimus [Prograf] 1 mg PO DAILY MDD TAKE WITH 5 MG 08/10/18 Tacrolimus [Prograf] 5 mg PO Q12 08/10/18 Valganciclovir HCl 450 mg PO DAILY 08/10/18 Cefpodoxime Proxetil [Vantin 200 Mg Tablet] 200 mg PO DAILY #10 tablet 08/12/18 History of Present Illness History of Present Illness: LOLA MURILLO is a 32 year old female with a past medical history of lupus, hypertension and renal failure requiring transplant July 2017 in [place]. Immunocompromised on CellCept, Prograf and prednisone. Developing 48 hours of pain and burning on urination and dull, 2 out of 5 right lower quadrant pain without radiation. In the emergency room she is found with hypotension, tachycardia, fever of 102.9, acute renal failure with a GFR of only 23 from a baseline of 34. CT abdomen pelvis reveals pyelonephritis of transplanted kidney without evidence of stone, hydronephrosis or obstruction. She receives empiric antibiotics and referred to the hospitalist for admission. Patient denies recent antibiotic use and is otherwise been feeling well. Hospital Course Hospital Course: She was put on IV antibiotics and began to respond rather quickly. Her culture showed that it was a fairly sensitive organism and can be treated with oral antibiotics. Because of her chronic kidney disease, I decided not to use a fluoroquinolone, and because it was resistant to ampicillin and decided not to use that drug, and due to her response to Rocephin I chose Vantin. She will treat with that for another 10 days. Her labs and examination were reassuring and she was discharged in good condition Physical Exam Vital Signs: Temp Pulse Resp BP Pulse Ox 98.5 F 71 16 158/89 H 100 08/12/18 12:12 08/12/18 12:12 08/12/18 12:12 08/12/18 12:12 08/12/18 12:12 Intake & Output 08/11/18 08/12/18 08/13/18 06:59 06:59 06:59 Intake Total 2050 1555 250 Output Total 900 1000 Balance 1150 555 250 Weight 98.5 kg 96.8 kg General appearance: PRESENT: no acute distress, cooperative, disheveled, morbidly obese Respiratory exam: PRESENT: clear to auscultation edis, symmetrical, unlabored. ABSENT: accessory muscle use, prolonged expiratory phas, rales, rhonchi, tachypnea, wheezes Cardiovascular exam: PRESENT: RRR, +S1, +S2 Pulses: PRESENT: normal carotid pulses Vascular exam: PRESENT: normal capillary refill GI/Abdominal exam: PRESENT: normal bowel sounds, soft. ABSENT: distended, guarding, rebound, tenderness Extremities exam: ABSENT: clubbing, pedal edema Musculoskeletal exam: PRESENT: normal inspection. ABSENT: deformity Neurological exam: PRESENT: alert, awake, oriented to person, oriented to place, oriented to time, oriented to situation Psychiatric exam: PRESENT: appropriate affect, normal mood Skin exam: PRESENT: dry, warm Results Laboratory Results: 08/12/18 04:29 08/12/18 04:29 08/12/18 08/12/18 04:29 04:29 WBC 5.5 RBC 4.54 Hgb 11.9 L Hct 36.6 MCV 81 MCH 26.2 L MCHC 32.6 RDW 14.3 H Plt Count 103 L Seg Neutrophils % 66.9 Lymphocytes % 26.2 Monocytes % 6.8 Eosinophils % 0.0 Basophils % 0.1 Absolute Neutrophils 3.7 Absolute Lymphocytes 1.4 Absolute Monocytes 0.4 Absolute Eosinophils 0.0 Absolute Basophils 0.0 Sodium 140.1 Potassium 3.2 L Chloride 108 H Carbon Dioxide 23 Anion Gap 9 BUN 25 H Creatinine 2.34 H Est GFR ( Amer) 29 L Est GFR (Non-Af Amer) 24 L Glucose 99 Calcium 10.4 H Magnesium 1.7 08/09/18 20:10 Clean Catch Midstream Urine Culture - Final Escherichia Coli Impressions: Abdomen CT 08/10/18 00:17 IMPRESSION: Right renal transplant with mild nonspecific surrounding perinephric stranding. No convincing hydronephrosis or nephrolithiasis. Qualifiers - * PATIENT BEING DISCHARGED WITH ANY OF THE FOLLOWING DIAGNOSIS: No
== END 2018-08-12 13:36 | disposition home or self-care (01) | DRG 872 ==
LOC: ER 19:51 → EH 08-10 02:05 → 3N 08-10 22:45
PROVIDERS: ADMIT Internal Medicine; ATTEND Internal Medicine
PROC: 3E0F73Z Introduction of Anti-inflammatory into Respiratory Tract, Via Natural or Artificial Opening (ICD-10-PCS; principal; 2018-08-10)
DX: A41.9 Sepsis, unspecified organism (principal); N12 Tubulo-interstitial nephritis, not specified as acute or chronic; N17.9 Acute kidney failure, unspecified; Z94.0 Kidney transplant status; I12.0 Hypertensive chronic kidney disease with stage 5 chronic kidney disease or end stage renal disease; N18.5 Chronic kidney disease, stage 5; B96.20 Unspecified Escherichia coli [E. coli] as the cause of diseases classified elsewhere; M32.9 Systemic lupus erythematosus, unspecified; E83.52 Hypercalcemia; E21.3 Hyperparathyroidism, unspecified; E55.9 Vitamin D deficiency, unspecified; E83.39 Other disorders of phosphorus metabolism; Z79.899 Other long term (current) drug therapy; Z83.3 Family history of diabetes mellitus; Z82.49 Family history of ischemic heart disease and other diseases of the circulatory system
CPT/HCPCS: 36415; 74150; 80048; 80053; 81001; 82306; 82330; 82803; 83605; 83735; 83970; 84100; 84702; 85025; 85610; 87040; 87086; 87088; 87186; 96365; 99285; J0360; J0692; J0696; J1720; J3370; J3490; J7030; J7060; J7507; J7512; J7517

== ENCOUNTER 2018-12-11 20:15 | Emergency (ER) | payer BC, MEDICARE, MEDICAID ==
[2018-12-11 20:40] VITALS: BP 122/68
[2018-12-11] MEDS ORDERED: CEPHALEXIN 500 MG CAPSULE PO ONE (21:23)
--- NOTE | 2018-12-11 21:40 | ER Document Report ---
ED Extremity Problem, Lower - General Chief Complaint: Toe Injury Stated Complaint: TOE PAIN Time Seen by Provider: 12/11/18 21:13 Primary Care Provider: GILMER CRAIN DPM [ACTIVE STAFF] - Follow up as needed Mode of Arrival: Ambulatory Information source: Patient Notes: 33-year-old female presented to ED for complaint of left great toe pain for hours more than a week worse for the last couple days. She states she works 12 hours today and the pain was much greater today. She is alert oriented respirations regular and unlabored speaking in full sentences walks with a even steady gait. TRAVEL OUTSIDE OF THE [place] IN LAST 30 DAYS: No - HPI Patient complains to provider of: Pain, Swelling Location: Great Toe - Left Occurred: Other - See note Where: Other - No injury Onset/Duration: Gradual Quality of pain: Sharp, Throbbing Severity: Moderate Pain Level: 4 Context: Other Recent injury: No - Painful ambulation Associated symptoms: Painful ambulation Exacerbated by: Hanging down, Movement, Walking Relieved by: Elevation, Rest - Related Data Allergies/Adverse Reactions: vancomycin Allergy (Verified 12/11/18 20:55) Generalized Itching Past Medical History - General Information source: Patient - Social History Smoking Status: Never Smoker Frequency of alcohol use: None Drug Abuse: Marijuana Occupation: [employer] Lives with: Family Family History: DM, Hypertension Patient has suicidal ideation: No Patient has homicidal ideation: No - Past Medical History Cardiac Medical History: Reports: Hx Hypertension Pulmonary Medical History: Reports: None EENT Medical History: Reports: None Neurological Medical History: Reports: None Endocrine Medical History: Reports: None Renal/ Medical History: Reports: Other - Renal failure with kidney transplant Malignancy Medical History: Reports: None GI Medical History: Reports: None Musculoskeletal Medical History: Reports None Skin Medical History: Reports Hx Cellulitis Psychiatric Medical History: Reports: None Traumatic Medical History: Reports: None Infectious Medical History: Reports: None Past Surgical History: Reports: Hx Gynecologic Surgery - Novasure procedure, Hx Kidney (Renal Surgery) - Kidney Transplant - Immunizations Hx Diphtheria, Pertussis, Tetanus Vaccination: No Hx Pneumococcal Vaccination: 06/10/16 Review of Systems - Review of Systems Constitutional: No symptoms reported EENT: No symptoms reported Cardiovascular: No symptoms reported Respiratory: No symptoms reported Gastrointestinal: No symptoms reported Genitourinary: No symptoms reported Female Genitourinary: No symptoms reported Musculoskeletal: Other - Pain swelling left great toe Skin: Other - Paronychia left great toe Hematologic/Lymphatic: No symptoms reported Neurological/Psychological: No symptoms reported -: Yes All other systems reviewed and negative Physical Exam - Vital signs Vitals: Temp Pulse Resp BP Pulse Ox 98.3 F 69 20 122/68 99 12/11/18 20:38 12/11/18 20:38 12/11/18 20:38 12/11/18 20:38 12/11/18 20:38 Interpretation: Normal - General General appearance: Appears well, Alert - HEENT Head: Normocephalic, Atraumatic Eyes: Normal Pupils: PERRL - Respiratory Respiratory status: No respiratory distress Chest status: Nontender Breath sounds: Normal Chest palpation: Normal - Cardiovascular Rhythm: Regular Heart sounds: Normal auscultation Murmur: No - Abdominal Inspection: Normal Distension: No distension Bowel sounds: Normal Tenderness: Nontender Organomegaly: No organomegaly - Back Back: Normal, Nontender - Extremities General upper extremity: Normal inspection, Nontender, Normal color, Normal ROM, Normal temperature General lower extremity: Normal inspection, Nontender, Normal color, Normal ROM, Normal temperature, Normal weight bearing. No: Luis's sign - Neurological Neuro grossly intact: Yes Cognition: Normal Orientation: AAOx4 [place] Coma Scale Eye Opening: Spontaneous [place] Coma Scale Verbal: Oriented Donnie Coma Scale Motor: Obeys Commands [place] Coma Scale Total: 15 Speech: Normal Motor strength normal: LUE, RUE, LLE, RLE Sensory: Normal - Psychological Associated symptoms: Normal affect, Normal mood - Skin Skin Temperature: Warm Skin Moisture: Dry Skin Color: Normal Skin irregularity: other - Paronychia Location of irregularity: Extremities - Great toe Irregularity with: Swelling, Tenderness, Warmth Course - Re-evaluation Re-evalutation: 12/11/18 21:48 Patient was given instructions on elevation and soaking toe in Epson salt pushing back to skin letting the drainage come out and she was started on Keflex. Patient to follow-up with podiatry on Thursday. Patient was discharged home with prescription for Keflex. Patient instructed on use of Tylenol for pain. Patient verbalized understanding and agreement with treatment plan and patient was discharged home. - Vital Signs Vital signs: Temp Pulse Resp BP Pulse Ox 98.3 F 69 20 122/68 99 12/11/18 20:38 12/11/18 20:38 12/11/18 20:38 12/11/18 20:38 12/11/18 20:38 Discharge - Discharge Clinical Impression: Paronychia of great toe, left Condition: Stable Disposition: HOME, SELF-CARE Additional Instructions: Paronychia You have an infection between the nail and the surrounding skin, called a paronychia. The germs infect the area after a minor skin injury, such as a hangnail. This infection is treated by releasing the pus. This is usually done by the skin from the nail. If the infection has spread underneath the nail, partial removal of the nail may be necessary. Hot-soak the area three or four times daily. Antibiotics are often given, but are not always necessary. Healing takes about a week. If pain or swelling becomes severe or if you develop fever or chills, call the doctor or return for re-examination. Epsom Salt Soaks Soak the wound area in a container of warm epsom salt water. If you can't get the wound area into a bucket or jolley, use a folded towel soaked in the epsom salt solution and apply to the area. Use clean hot tap water (about the temperature of a very warm bath), mixing in about one (1) teaspoon for every pint of water. Two gallon --> 16 teaspoons Epsom Salts One gallon --> 8 teaspoons Epsom Salts Two quarts --> 4 teaspoons Epsom Salts One quart --> 2 teaspoons Epsom Salts Soak the wound for about 20 minutes while gently moving it around in the water. Repeat this four (4) times a day. Antibiotic Ointment Protection Your wounds are such that dressing them is not practical or optional. After cleansing, you should apply a thin coating of antibiotic ointment (Bacitracin, not Neosporin) to the wounds at least three times daily. This le ssens infection risk, and may decrease the amount of scarring. Use a q-tip or dull butter knife, not your finger, to apply this ointment. Any debris or ooze which builds up in the ointment should be gently rubbed off with a sterile gauze pad. Harder crusting may need to be gently scrubbed off with a clean wash cloth with soap and warm water, perhaps applying a warm, wet wash cloth to the wound for ten minutes first. Development of redness, severe itching, or blistering may mean allergy to the ointment. See the doctor. Cephalexin The antibiotic you've been prescribed is a member of the cephalosporin class. This type of antibiotic covers a wide variety of infections, including those of the skin, lungs, and urinary tract. It's useful for staph infections. This antibiotic is slightly similar to the penicillin family. In rare cases, a person who is allergic to penicillin will also be allergic to this medication. If you have had a severe allergic reaction to penicillin, and have not taken this antibiotic since that time, notify your doctor. Antibiotics which cover many germs ("broad spectrum" antibiotics) are more likely to cause diarrhea or "yeast" infections. Women prone to vaginal yeast problems may suffer an attack after taking this antibiotic. In infants, oral thrush (white spots "stuck" on the cheek) or yeast diaper rash may result. See your doctor if these problems occur. Call at once if you develop itching, hives, shortness of breath, or lightheadedness. Acetaminophen Acetaminophen may be taken for pain relief or fever control. It's much safer than aspirin, offering a wider range of "safe" dosages. It is safe during . Some brand names are Tylenol, Panadol, Datril, Anacin 3, Tempra, and Liquiprin. Acetaminophen can be repeated every four hours. The following are maximum recommended dosages: WEIGHT Dose Drops Elixir Chewable(80mg) (LBS.) drprs=droppers tsp=teaspoon 6 40 mg .4 ml (1/2) 6-11 80 mg .8 ml (full) 1/2 tsp 1 tab 12-16 120 mg 1 1/2 drprs 3/4 tsp 1 1/2 tabs 17-23 160 mg 2 drprs 1 tsp 2 tabs 24-30 240 mg 3 drprs 1 1/2 tsp 3 tabs 30-35 320 mg 2 tsp 4 tabs 36-41 360 mg 2 1/4 tsp 4 1/2 tabs 42-47 400 mg 2 1/2 tsp 5 tabs 48-53 480 mg 3 tsp 6 tabs 54-59 520 mg 3 1/4 tsp 6 1/2 tabs 60-64 560 mg 3 1/2 tsp 7 tabs 65-70 600 mg 3 3/4 tsp 7 1/2 tabs 71-76 640 mg 4 tsp 8 tabs 77-82 720 mg 4 1/2 tsp 9 tabs 83-88 800 mg 5 tsp 10 tabs >89 pounds or adults 650 mg to 900 mg Acetaminophen can be repeated every four hours. Maximum daily dose not to exceed 4000 mg. These maximum recommended dosages are slightly higher than the dosages written on the product container, but these dosages are very safe and well below the toxic dosage for acetaminophen. FOLLOW-UP CARE: If you have been referred to a physician for follow-up care, call the physicians office for an appointment as you were instructed or within the next two days. If you experience worsening or a significant change in your symptoms, notify the physician immediately or return to the Emergency Department at any time for re-evaluation. Prescriptions: Cephalexin Monohydrate [Keflex 500 mg Capsule] 500 mg PO Q6H 5 Days capsule Forms: Return to Work Referrals: GILMER CRAIN DPM [ACTIVE STAFF] - Follow up as needed
== END 2018-12-11 21:30 | disposition home or self-care (01) ==
LOC: ER 20:15
DX: L03.032 Cellulitis of left toe (principal); M79.675 Pain in left toe(s); I10 Essential (primary) hypertension
CPT/HCPCS: 99283

== ENCOUNTER → 2019-01-17 | Outpatient (CLI) | payer BC, MEDICARE, MEDICAID ==
[2019-01-17 11:55] LABS: ANION GAP 11 (5-19); BLOOD UREA NITROGEN 29 mg/dL (7-20); CALCIUM 10.1 mg/dL (8.4-10.2); CARBON DIOXIDE 26 mmol/L (22-30); CHLORIDE 109 mmol/L (98-107); GLUCOSE 93 mg/dL (75-110); POTASSIUM 4.2 mmol/L (3.6-5.0)
== END ==
LOC: OD 10:53
PROVIDERS: ATTEND Internal Medicine Nephrology
DX: Z48.812 Encounter for surgical aftercare following surgery on the circulatory system (principal); Z94.0 Kidney transplant status
CPT/HCPCS: 36415; 80048; 80197

== ENCOUNTER 2019-01-28 18:47 | Emergency (ER) | payer BC, MEDICARE, MEDICAID ==
[2019-01-28 18:58] VITALS: BP 116/67
--- NOTE | 2019-01-28 19:17 | ER Document Report ---
HPI - HPI Time Seen by Provider: 01/28/19 19:10 Pain Level: 3 Notes: Patient is an otherwise healthy 33-year-old female presenting with nausea, vomiting and diarrhea that began just 2 hours prior to arrival. Patient reports she had just gone to work and had to leave work due to her symptoms. She denies any fever or abdominal pain. She denies any dysuria or flank pain. - REPRODUCTIVE Reproductive: DENIES: : - DERM Skin Color: Normal Past Medical History - General Information source: Patient - Social History Smoking Status: Never Smoker Frequency of alcohol use: None Drug Abuse: None Family History: DM, Hypertension Patient has suicidal ideation: No Patient has homicidal ideation: No - Past Medical History Cardiac Medical History: Reports: Hx Hypertension Denies: Hx Heart Attack Pulmonary Medical History: Denies: Hx Asthma Neurological Medical History: Denies: Hx Cerebrovascular Accident, Hx Seizures Renal/ Medical History: Denies: Hx Peritoneal Dialysis GI Medical History: Denies: Hx Hepatitis, Hx Hiatal Hernia, Hx Ulcer Skin Medical History: Reports Hx Cellulitis Infectious Medical History: Denies: Hx Hepatitis Past Surgical History: Reports: Hx Genitourinary Surgery - kidney transplant, Hx Gynecologic Surgery - Novasure procedure, Hx Kidney (Renal Surgery) - Kidney Transplant. Denies: Hx Mastectomy, Hx Open Heart Surgery, Hx Pacemaker - Immunizations Hx Diphtheria, Pertussis, Tetanus Vaccination: No Hx Pneumococcal Vaccination: 06/10/16 Vertical Provider Document - CONSTITUTIONAL Notes: PHYSICAL EXAMINATION: GENERAL: Well-appearing, well-nourished and in no acute distress. HEAD: Atraumatic, normocephalic. EYES: Pupils equal round and reactive to light, extraocular movements intact, conjunctiva are normal. ENT: Nares patent, oropharynx clear without exudates. Moist mucous membranes. NECK: Normal range of motion, supple without lymphadenopathy LUNGS: Breath sounds clear to auscultation bilaterally and equal. No wheezes rales or rhonchi. HEART: Regular rate and rhythm without murmurs ABDOMEN: Soft, nontender, nondistended abdomen. No guarding, no rebound. No masses appreciated. Female : deferred Musculoskeletal: Normal range of motion, no pitting or edema. No cyanosis. NEUROLOGICAL: Cranial nerves grossly intact. Normal speech, normal gait. Normal sensory, motor exams PSYCH: Normal mood, normal affect. SKIN: Warm, Dry, normal turgor, no rashes or lesions noted. - INFECTION CONTROL TRAVEL OUTSIDE OF THE [place] IN LAST 30 DAYS: No Course - Re-evaluation Re-evalutation: Patient appears well, nontoxic and vital signs are within normal limits. Patient reports she has vomited twice in the last 2 hours and has had 3 episodes of diarrhea. This is likely viral gastroenteritis as patient does not have a fever and has no abdominal pain. She will be discharged home with prescription for Zofran and Pepcid and given a work note. Strict ED return precautions were discussed as outlined in the discharge instructions, patient verbalized understanding and agreement with this plan. - Vital Signs Vital signs: Temp Pulse Resp BP Pulse Ox 99.0 F 98 18 116/67 99 01/28/19 18:57 01/28/19 18:57 01/28/19 18:57 01/28/19 18:57 01/28/19 18:57 Discharge - Discharge Clinical Impression: Nausea vomiting and diarrhea Condition: Stable Disposition: HOME, SELF-CARE Additional Instructions: Abdominal Pain There are many causes of abdominal pain. Pain can mean a serious problem requiring surgery (such as appendicitis). It can also be an innocent problem that goes away on its own (such as a viral infection). Often, time must pass to determine the cause of pain. The physician does not feel that hospitalization is necessary, at present. Things may change within the next 24 hours. Call the doctor or come back for re- examination if any problems occur, such as: (1) Pain that becomes more severe, steady, or becomes concentrated in one specific area. Also, pain that is more severe with movement or coughing. (2) Vomiting that persists or becomes more frequent. (3) Blood in the vomitus, urine, or bowel movements. Blood in the stool may have a tarry or black appearance. (4) Shaking chills or fever greater than 100 degrees F. (5) The abdomen becomes more distended or swollen. (6) Bowel movements cease. (7) Failure to improve as expected. Drink plenty of fluids, Gatorade, broth, water, or anything clear is fine. Tylenol for aches or fever. Take medications as prescribed. Return to the ED if worsening in any way. Prescriptions: Famotidine [Pepcid 20 mg Tablet] 20 mg PO DAILY #12 tablet Ondansetron [Zofran Odt 4 mg Tablet] 1 - 2 tab PO Q4H PRN #15 tab.rapdis PRN Reason: For Nausea/Vomiting Forms: Return to Work Referrals: DMITRIY HART MD [ACTIVE STAFF] - Follow up as needed
== END 2019-01-28 19:22 | disposition home or self-care (01) ==
LOC: ER 18:47
DX: R11.2 Nausea with vomiting, unspecified (principal); R19.7 Diarrhea, unspecified; I10 Essential (primary) hypertension
CPT/HCPCS: 99283

== ENCOUNTER 2019-05-11 09:47 | Emergency (ER) | payer BC, MEDICARE, MEDICAID ==
--- NOTE | 2019-05-11 10:54 | ER Document Report ---
ED General - General Chief Complaint: Chest Pain Stated Complaint: DIZZINESS TRAVEL OUTSIDE OF THE [place] 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 she denies to me any CP or passing out. 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 she asked her boss for a break and he gave her her 30 minute. she hadn't yet take her AM meds since she usually takes those at 1030 am. she says she hasn't had any dysnpea, no exertional sx, no PND. says she hasn't had any lapses in her meds or recent (febrile) or diarrheal illnesses. she initially had reported chest pain per triage notes reviewed, but when she relays to me she says it was more of a " lightness or gripping sensation during period above for which she needed to take the break. 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 she therefore told her boss she needed to go to the ED. she got in her car (no inc in sx she said walking, took her carvedilol of her AM meds, then drove here. no vomiting. no abdominal or bnack or flank pain. denies urinary sx. pmh: also 07/2018 adm pyelonephritis w/ jolley sensitive e coli - Related Data Allergies/Adverse Reactions: vancomycin Allergy (Verified 05/11/19 10:18) Generalized Itching Home Medications: carvedilol, tacrolimis, prednisone, cellcept, valganciclovir Past Medical History - General Information source: Patient - Social History Smoking Status: Never Smoker Chew tobacco use (# tins/day): No Family History: Reviewed & Not Pertinent, DM, Hypertension Patient has suicidal ideation: No Patient has homicidal ideation: No - Past Medical History Cardiac Medical History: Reports: Hx Hypertension Denies: Hx Heart Attack Pulmonary Medical History: Denies: Hx Asthma Neurological Medical History: Denies: Hx Cerebrovascular Accident, Hx Seizures Renal/ Medical History: Denies: Hx Peritoneal Dialysis GI Medical History: Denies: Hx Hepatitis, Hx Hiatal Hernia, Hx Ulcer Skin Medical History: Reports Hx Cellulitis Infectious Medical History: Denies: Hx Hepatitis Past Surgical History: Reports: Hx Genitourinary Surgery - kidney transplant, Hx Gynecologic Surgery - Novasure procedure, Hx Kidney (Renal Surgery) - Kidney Transplant. Denies: Hx Mastectomy, Hx Open Heart Surgery, Hx Pacemaker - Immunizations Hx Diphtheria, Pertussis, Tetanus Vaccination: No Hx Pneumococcal Vaccination: 06/10/16 Physical Exam - Vital signs Vitals: Temp Pulse Resp BP Pulse Ox 98.1 F 73 16 174/112 H 100 05/11/19 09:50 05/11/19 09:50 05/11/19 09:50 05/11/19 09:50 05/11/19 09:50 Course - Re-evaluation Re-evalutation: 05/18/19 01:54 pt given 1L ivlr as she appeared dehydrated on clinical exam and story c/w vasovagal sx. tolerated this well. her renal function did appear slightly diminished c/t prior few m/a. this was obtained prior to fluid administration. her bp had improved w/o us giving anything additional-i believe 2/2 her BB starting to work. gave additional 500cc lr. troponin initially performed neg. obtained delta ~2+hr which was also neg. otherwise her labs were wnl. no evide nce of uti. she contined to deny any pain or sob on serial exams, and said she felt much better. we ambulated her in ED no difficulty w/ this no reported sx during the ambulation. no hypoxia at all during ed stay. we discussed her having lupus alone makes her at inc risk of heart attacks and i can't rule out that she may have an event after d/c. i explained at least i do not see evidence you had a heart attack from the event you experienced early this am, which i believe is c/w vasovagal and dehydration which is also present on her labs here. i said, your BP improved some w/ BB, but i worry your porcelain enamel installer and pcp need to follow up both your renal function and ensure your BP is at goal since again your lupus compounds risk for your kidneys blood vessels brain and heart and other end organs w/ uncontrolled bp even significatnly more than for someone w/o lupus which itself is an ind RF. she said she understands how important it is to call her doctor 1st thing in AM and let him know her renal function was slightly decreased c/t few m/a. i have printee out her labs here, as well as her ECG. I discussed w/ her that ecg today has no signs of ischemia and no change in two of 12 leads when c/t rhythym strip (II, V) done months ago i said you can also have your doctor request your tacrolimus level which i sent off today if needed. - Vital Signs Vital signs: Temp Pulse Resp BP Pulse Ox 98.1 F 76 14 180/110 H 98 05/11/19 20:01 05/11/19 20:01 05/11/19 20:01 05/11/19 20:01 05/11/19 20:01 - Laboratory Result Diagrams: 05/11/19 10:46 05/11/19 10:46 Laboratory results interpreted by me: 05/11/19 05/11/19 10:46 10:46 Hgb 11.6 L MCH 26.3 L MCHC 31.5 L RDW 15.3 H Plt Count 123 L Lymph % (Auto) 45.8 H Sodium 145.4 H Chloride 110 H BUN 31 H Creatinine 2.66 H Est GFR ( Amer) 25 L Est GFR (MDRD) Non-Af 21 L - Diagnostic Test Radiology reviewed: Image reviewed, Reports reviewed - EKG Interpretation by Me EKG shows normal: Sinus rhythm Rate: Normal Rhythm: NSR. No: PVC's Voltage: No: Increased voltage, Consistant with LVH, Decreased voltage When compared to previous EKG there are: No significant change, Previous EKG unavailable - full prior 12 lead unavailable but "q waves in v1 present 2 lead rhythm strip from 07/2018 and unchanged c/t today's 12 lead's v1 lead. Discharge - Discharge Clinical Impression: Acute renal injury due to hypovolemia, Hypertension, Chest wall pain Condition: Good Disposition: HOME, SELF-CARE Additional Instructions: Your kidney function compared to your prior here I have printed out when she does call your porcelain enamel installer and have him follow-up on your renal function. I think you are a little dehydrated today and we gave you a liter of fluids after we do your lab work. Therefore I assume that you are kidney function probably looks better. Make sure you are eating and drinking well and taking your blood pressure medicines since her blood pressure was a little high in the ER here we also want him to follow up with you about that.
[2019-05-11 11:01] LABS: ABSOLUTE MONOCYTES (AUTO) 0.3 10^3/uL (0.1-1.4); ABSOLUTE NEUT (AUTO) 1.9 10^3/uL (1.7-8.2); BASOPHILS % (AUTO) 0.6 % (0-2); EOSINOPHILS % (AUTO) 0.4 % (0-6); HEMOGLOBIN 11.6 g/dL (12.0-15.5); LYMPHOCYTES % (AUTO) 45.8 % (13-45); MEAN CORPUSCULAR HEMOGLOBIN 26.3 pg (27.0-33.4); MEAN CORPUSCULAR HGB CONC 31.5 g/dL (32.0-36.0); MEAN CORPUSCULAR VOLUME 84 fl (80-97); MONOCYTES % (AUTO) 7.9 % (3-13); PLATELET COUNT 123 10^3/uL (150-450); RED BLOOD COUNT 4.42 10^6/uL (3.72-5.28); RED CELL DISTRIBUTION WIDTH 15.3 % (11.5-14.0); SEGMENTED NEUTROPHILS % (AUTO) 45.3 % (42-78); TOTAL CELLS COUNTED % (AUTO) 100 %; WHITE BLOOD COUNT 4.3 10^3/uL (4.0-10.5)
--- NOTE | 2019-05-11 11:07 | RADIOLOGY REPORT (SQ) ---
EXAM DESCRIPTION: CHEST 2 VIEWS COMPLETED DATE/TIME: 05/11/2019 10:56 am REASON FOR STUDY: chest pain COMPARISON: PA and lateral views of the chest from 04/18/2011. EXAM PARAMETERS: NUMBER OF VIEWS: two views TECHNIQUE: PA and lateral views of the chest were obtained. RADIATION DOSE: NA LIMITATIONS: none FINDINGS: LUNGS AND PLEURA: No consolidation, pleural effusion or pneumothorax. MEDIASTINUM AND HILAR STRUCTURES: No mediastinal or hilar contour abnormality. HEART AND VASCULAR STRUCTURES: The cardiac silhouette and pulmonary vasculature are within normal lo its. BONES: No acute findings. HARDWARE: None in the chest. OTHER: No other finding. IMPRESSION: No acute cardiopulmonary process. TECHNICAL DOCUMENTATION: JOB ID: [id number] [employer]- All Rights Reserved Reading location - IP/workstation name: [email or web address]
[2019-05-11 11:22] LABS: ALBUMIN 4.7 g/dL (3.5-5.0); ALKALINE PHOSPHATASE 64 U/L (38-126); ANION GAP 12 (5-19); ASPARTATE AMINO TRANSFERASE 21 U/L (14-36); BILIRUBIN,DIRECT 0.2 mg/dL (0.0-0.4); BILIRUBIN,TOTAL 0.7 mg/dL (0.2-1.3); BLOOD UREA NITROGEN 31 mg/dL (7-20); CARBON DIOXIDE 23 mmol/L (22-30); CHLORIDE 110 mmol/L (98-107); CREATINE KINASE 101 U/L (30-135); GLUCOSE 102 mg/dL (75-110); POTASSIUM 3.8 mmol/L (3.6-5.0); TOTAL PROTEIN 7.8 g/dL (6.3-8.2)
[2019-05-11 11:32] LABS: TROPONIN I < 0.012 ng/mL
[2019-05-11] MEDS ORDERED: RINGERS SOLUTION,LACTATED 1,000 ML IV ONE (11:55)
[2019-05-11 12:37] LABS: PHOSPHORUS 3.8 mg/dL (2.5-4.5)
[2019-05-11] MEDS ORDERED: RINGERS SOLUTION,LACTATED 500 ML IV ONE (13:20)
--- NOTE | 2019-05-11 17:45 | EKG REPORT ---
SEVERITY:- ABNORMAL ECG - SINUS RHYTHM ABNORMAL Q SUGGESTS OLD ANTERIOR INFARCT : Confirmed by: Orlando Wolf MD 11-May-2019 17:45:28
[2019-05-11 20:01] VITALS: BP 180/110
== END 2019-05-11 19:30 | disposition home or self-care (01) ==
LOC: ER 09:47
DX: N17.9 Acute kidney failure, unspecified (principal); E86.1 Hypovolemia; R07.9 Chest pain, unspecified; R07.89 Other chest pain; I10 Essential (primary) hypertension; Z94.0 Kidney transplant status; Z88.3 Allergy status to other anti-infective agents
CPT/HCPCS: 93005; 99285; 96360; 36415; 82553; 82550; 83735; 84100; 85025; 80053; 84484; 71046; 93010; J7120

== ENCOUNTER 2019-06-14 07:27 | Emergency (ER) | payer BC, MEDICARE, MEDICAID ==
[2019-06-14 10:02] LABS: APPEARANCE,URINE CLEAR; BILIRUBIN,URINE NEGATIVE (NEGATIVE); COLOR,URINE YELLOW; GLUCOSE, URINE NEGATIVE (NEGATIVE); KETONES,URINE NEGATIVE (NEGATIVE); LEUKOCYTE ESTERASE,URINE NEGATIVE (NEGATIVE); NITRITE,URINE NEGATIVE (NEGATIVE); PROTEIN,URINE 30 mg/dL (NEGATIVE); URINE SPECIFIC GRAVITY 1.018; UROBILINOGEN,URINE NEGATIVE mg/dL (<2.0)
[2019-06-14 10:08] LABS: A TYPE INFLUENZA AG NEGATIVE (NEGATIVE); B INFLUENZA AG NEGATIVE (NEGATIVE)
--- NOTE | 2019-06-14 10:24 | ER Document Report ---
ED General - General Chief Complaint: Chest Wall Pain Stated Complaint: CHEST PAIN Time Seen by Provider: 06/14/19 08:38 Notes: 33-year-old female presents emergency department complaining of chills and sweats starting yesterday not associated with any symptoms aside from dysuria. Patient denies cough, nausea, vomiting, diarrhea or abdominal pain. States that she is having chills and sweats but "this does not feel like a typical fever." Patient did report to nursing that she has had chest pain for the past 2 days but she states that she is not concerned by this chest pain. 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 Denies any shortness of breath or cough. TRAVEL OUTSIDE OF THE [place] IN LAST 30 DAYS: No - Related Data Allergies/Adverse Reactions: vancomycin Allergy (Verified 06/14/19 08:15) Generalized Itching Home Medications: [facility] Past Medical History - General Information source: Patient - Social History Smoking Status: Former Smoker Frequency of alcohol use: None Drug Abuse: None Family History: Reviewed & Not Pertinent, DM, Hypertension Patient has suicidal ideation: No Patient has homicidal ideation: No - Past Medical History Cardiac Medical History: Reports: Hx Hypertension Denies: Hx Heart Attack Pulmonary Medical History: Denies: Hx Asthma Neurological Medical History: Denies: Hx Cerebrovascular Accident, Hx Seizures Renal/ Medical History: Denies: Hx Peritoneal Dialysis GI Medical History: Denies: Hx Hepatitis, Hx Hiatal Hernia, Hx Ulcer Skin Medical History: Reports Hx Cellulitis Infectious Medical History: Denies: Hx Hepatitis Past Surgical History: Reports: Hx Genitourinary Surgery - kidney transplant, Hx Gynecologic Surgery - Novasure procedure, Hx Kidney (Renal Surgery) - Kidney Transplant. Denies: Hx Mastectomy, Hx Open Heart Surgery, Hx Pacemaker - Immunizations Hx Diphtheria, Pertussis, Tetanus Vaccination: No Hx Pneumococcal Vaccination: 06/10/16 Review of Systems - Review of Systems Constitutional: See HPI, Chills, Diaphoresis. denies: Fever Cardiovascular: See HPI, Chest pain Respiratory: No symptoms reported Genitourinary: See HPI, Dysuria -: Yes All other systems reviewed and negative Physical Exam - Vital signs Vitals: Temp Pulse Resp BP Pulse Ox 97.7 F 77 18 128/82 H 99 06/14/19 07:38 06/14/19 07:38 06/14/19 07:38 06/14/19 07:38 06/14/19 07:38 Interpretation: Normal - Notes Notes: GENERAL: Alert, interacts well. No acute distress. HEAD: Normocephalic, atraumatic EYES: Pupils equal, round and reactive to light, extraocular movements intact. ENT: Oral mucosa moist, tongue midline. NECK: Full range of motion, supple, trachea midline. LUNGS: Clear to auscultation bilaterally, no wheezes, rales or rhonchi, no resp iratory distress. HEART: Regular rate and rhythm, no murmurs, gallops, rubs. ABDOMEN: Soft, nontender, nondistended, bowel sounds present in all 4 quadrants. EXTREMITIES: Moves all 4 extremities spontaneously, no edema, radial and dorsalis pedis pulses 2/4 bilaterally. No cyanosis. NEUROLOGICAL: Alert and oriented x3, normal speech. PSYCH: Normal mood, normal affect. SKIN: Warm, Dry, normal turgor, no rashes or lesions noted. Course - Re-evaluation Re-evalutation: 06/14/19 11:14 Urinalysis unremarkable, test negative, flu swabs negative, EKG is nonischemic 06/14/19 11:14 At present I do not know why the patient is having sweats and chills without any other symptoms. Patient will be discharged home, encouraged to return should she develop any other symptoms including actual fever. Patient agreeable to this plan. 06/14/19 11:26 Reviewing patient's chart prior to discharge reveals that the patient has had a kidney transplant in 2018. Patient did not mention this to me initially. Patient will have more thorough work-up done given her immunosuppressed status. 06/14/19 15:02 CBC shows leukopenia at 2.7, hemoglobin slightly low at 11.7, platelets slightly low at 101, platelets and anemia are rather stable, white blood cell count is lower than usual, renal function is stable, blood cultures are pending. Discussed patient with Dr. Feliciano Foreman from [facility] nephrology, agrees with patient continuing to check her temperature at home, agrees with recommendation that patient return should her temperature hit 100.4 or higher. Does not recommend antibiotics at this point as she has not had true fever, she does not have a leukocytosis nor is she neutropenic. Recommends patient arrange follow-up appointment in the next 1 to 3 days. Patient is agreeable to this plan. Patient will be discharged to home. - Vital Signs Vital signs: Temp Pulse Resp BP Pulse Ox 98.5 F 77 17 150/99 H 100 06/14/19 14:04 06/14/19 07:38 06/14/19 11:02 06/14/19 14:04 06/14/19 11:02 - Laboratory Result Diagrams: 06/14/19 11:45 06/14/19 11:45 Laboratory results interpreted by me: 06/14/19 06/14/19 06/14/19 09:45 11:45 11:45 WBC 2.7 L Hgb 11.7 L MCH 26.2 L MCHC 31.7 L RDW 15.0 H Plt Count 101 L Absolute Neuts (auto) 1.4 L Chloride 111 H BUN 28 H Creatinine 2.59 H Est GFR ( Amer) 26 L Est GFR (MDRD) Non-Af 21 L Glucose 130 H Urine Protein 30 H Urine Blood SMALL H - EKG Interpretation by Me Additional EKG results interpreted by me: 06/14/19 11:14 EKG shows sinus rhythm at a rate of 79, no ST segment elevations or depressions, no T wave inversions, normal axis, normal intervals per my interpretation. Discharge - Discharge Clinical Impression: Chills (without fever), Immunocompromised state due to drug therapy, Kidney replaced by transplant Condition: Stable Disposition: HOME, SELF-CARE Additional Instructions: Right now I do not know why you are having sweats and chills. We did not see any signs of infection today nor did we not find any source of infection. After discussing your case with Dr. Foreman we have decided not to give you antibiotics at this time. Please continue to check your temperature at home when you are having sweats or chills. If it is 100.4 or greater please call your donor relations coordinator and if you cannot get through return to the emergency department immediately. We have checked blood cultures and they are currently in the lab. We will not have final results from your blood cultures until 3 to 5 days from now. We will call you if they grow out bacteria. Referrals: DMITRIY HART MD [ACTIVE STAFF] - Follow up in 3-5 days
--- NOTE | 2019-06-14 11:23 | EKG REPORT ---
SEVERITY:- NORMAL ECG - SINUS RHYTHM : Confirmed by: Thu Verde MD 14-Jun-2019 11:22:35
[2019-06-14 12:16] LABS: ABSOLUTE LYMPHOCYTES (AUTO) 1.1 10^3/uL (0.5-4.7); ABSOLUTE MONOCYTES (AUTO) 0.2 10^3/uL (0.1-1.4); ABSOLUTE NEUT (AUTO) 1.4 10^3/uL (1.7-8.2); BASOPHILS % (AUTO) 0.4 % (0-2); EOSINOPHILS % (AUTO) 0.6 % (0-6); HEMOGLOBIN 11.7 g/dL (12.0-15.5); LYMPHOCYTES % (AUTO) 39.6 % (13-45); MEAN CORPUSCULAR HEMOGLOBIN 26.2 pg (27.0-33.4); MEAN CORPUSCULAR HGB CONC 31.7 g/dL (32.0-36.0); MEAN CORPUSCULAR VOLUME 83 fl (80-97); MONOCYTES % (AUTO) 6.6 % (3-13); PLATELET COUNT 101 10^3/uL (150-450); RED BLOOD COUNT 4.48 10^6/uL (3.72-5.28); SEGMENTED NEUTROPHILS % (AUTO) 52.8 % (42-78); TOTAL CELLS COUNTED % (AUTO) 100 %; WHITE BLOOD COUNT 2.7 10^3/uL (4.0-10.5)
[2019-06-14 12:21] LABS: ALBUMIN 4.6 g/dL (3.5-5.0); ALKALINE PHOSPHATASE 65 U/L (38-126); ANION GAP 10 (5-19); ASPARTATE AMINO TRANSFERASE 19 U/L (14-36); BILIRUBIN,DIRECT 0.2 mg/dL (0.0-0.4); BILIRUBIN,TOTAL 0.5 mg/dL (0.2-1.3); BLOOD UREA NITROGEN 28 mg/dL (7-20); CARBON DIOXIDE 23 mmol/L (22-30); CHLORIDE 111 mmol/L (98-107); GLUCOSE 130 mg/dL (75-110); POTASSIUM 4.2 mmol/L (3.6-5.0); TOTAL PROTEIN 7.7 g/dL (6.3-8.2)
--- NOTE | 2019-06-14 13:00 | RADIOLOGY REPORT (SQ) ---
EXAM DESCRIPTION: CHEST 2 VIEWS COMPLETED DATE/TIME: 06/14/2019 12:42 pm REASON FOR STUDY: cough, chills, translant patient COMPARISON: Chest films 05/11/2019, 04/18/2011, 06/18/2009 EXAM PARAMETERS: NUMBER OF VIEWS: two views TECHNIQUE: Digital Frontal and Lateral radiographic views of the chest acquired. RADIATION DOSE: NA LIMITATIONS: none FINDINGS: LUNGS AND PLEURA: No opacities, masses or pneumothorax. No pleural effusion. MEDIASTINUM AND HILAR STRUCTURES: No masses or contour abnormalities. HEART AND VASCULAR STRUCTURES: Heart normal size. No evidence for failure. BONES: No acute findings. HARDWARE: None in the chest. OTHER: No other significant finding. IMPRESSION: NO ACUTE RADIOGRAPHIC FINDING IN THE CHEST. TECHNICAL DOCUMENTATION: JOB ID: [id number] [employer]- All Rights Reserved Reading location - IP/workstation name: [email or web address]
[2019-06-14 15:29] VITALS: BP 158/106
== END 2019-06-14 15:26 | disposition home or self-care (01) ==
LOC: ER 07:27
DX: R68.83 Chills (without fever) (principal); R61 Generalized hyperhidrosis; R30.0 Dysuria; R07.89 Other chest pain; D69.6 Thrombocytopenia, unspecified; D64.9 Anemia, unspecified; D72.819 Decreased white blood cell count, unspecified; I10 Essential (primary) hypertension; Z94.0 Kidney transplant status; Z88.1 Allergy status to other antibiotic agents; Z87.891 Personal history of nicotine dependence
CPT/HCPCS: 36415; 71046; 80053; 80197; 81001; 81025; 85025; 87040; 87804; 93005; 93010; 99284

== ENCOUNTER 2020-02-08 12:12 | Emergency (ER) | payer MEDICARE, MEDICAID ==
[2020-02-08] MEDS ORDERED: MORPHINE SULFATE 10 MG/ML INJ IV ONE (13:44)
[2020-02-08] MEDS ORDERED: ONDANSETRON 4 MG TAB.RAPDIS PO ONE (13:44)
[2020-02-08] MEDS ORDERED: NORMAL SALINE 1000 ML 1,000 ML IV ONE (13:44)
[2020-02-08 14:02] LABS: APPEARANCE,URINE CLOUDY; BILIRUBIN,URINE NEGATIVE (NEGATIVE); COLOR,URINE AMBER; GLUCOSE, URINE NEGATIVE (NEGATIVE); KETONES,URINE NEGATIVE (NEGATIVE); LEUKOCYTE ESTERASE,URINE MODERATE (NEGATIVE); NITRITE,URINE POSITIVE (NEGATIVE); PROTEIN,URINE 100 mg/dL (NEGATIVE); URINE SPECIFIC GRAVITY 1.014
[2020-02-08 14:27] LABS: ABSOLUTE LYMPHOCYTES (AUTO) 0.6 10^3/uL (0.5-4.7); ABSOLUTE MONOCYTES (AUTO) 0.5 10^3/uL (0.1-1.4); ABSOLUTE NEUT (AUTO) 8.5 10^3/uL (1.7-8.2); ALBUMIN 4.3 g/dL (3.5-5.0); ALKALINE PHOSPHATASE 60 U/L (38-126); ANION GAP 8 (5-19); ASPARTATE AMINO TRANSFERASE 23 U/L (14-36); BASOPHILS % (AUTO) 0.4 % (0-2); BILIRUBIN,DIRECT 0.2 mg/dL (0.0-0.4); BILIRUBIN,TOTAL 0.9 mg/dL (0.2-1.3); BLOOD UREA NITROGEN 31 mg/dL (7-20); CALCIUM 9.4 mg/dL (8.4-10.2); CARBON DIOXIDE 21 mmol/L (22-30); CHLORIDE 111 mmol/L (98-107); GLUCOSE 159 mg/dL (75-110); HEMATOCRIT 35.1 % (36.0-47.0); HEMOGLOBIN 11.6 g/dL (12.0-15.5); LYMPHOCYTES % (AUTO) 6.3 % (13-45); MEAN CORPUSCULAR HEMOGLOBIN 26.9 pg (27.0-33.4); MEAN CORPUSCULAR HGB CONC 33.1 g/dL (32.0-36.0); MEAN CORPUSCULAR VOLUME 81 fl (80-97); MONOCYTES % (AUTO) 5.2 % (3-13); POTASSIUM 3.7 mmol/L (3.6-5.0); RED BLOOD COUNT 4.32 10^6/uL (3.72-5.28); RED CELL DISTRIBUTION WIDTH 14.2 % (11.5-14.0); SEGMENTED NEUTROPHILS % (AUTO) 88.1 % (42-78); TOTAL CELLS COUNTED % (AUTO) 100 %; TOTAL PROTEIN 7.1 g/dL (6.3-8.2); WHITE BLOOD COUNT 9.6 10^3/uL (4.0-10.5)
[2020-02-08 14:34] LABS: PLATELET COUNT 84 10^3/uL (150-450)
--- NOTE | 2020-02-08 15:31 | RADIOLOGY REPORT (SQ) ---
EXAM DESCRIPTION: CT ABD/PELVIS NO ORAL OR IV IMAGES COMPLETED DATE/TIME: 02/08/2020 3:11 pm REASON FOR STUDY: diffuse abd COMPARISON: CT of the abdomen and pelvis without contrast from 08/10/2018. TECHNIQUE: CT scan of the abdomen and pelvis performed without intravenous or oral contrast. Images reviewed with lung, soft tissue, and bone windows. Reconstructed coronal and sagittal MPR images revi ewed. All images stored on PACS. All CT scanners at this facility use dose modulation, iterative reconstruction, and/or weight based d osing when appropriate to reduce radiation dose to as low as reasonably achievable (ALARA). [facility]: Dose Right [facility]: CareDose [facility]: Dose Right [facility]: Teradose 4D [facility]: [employer] RADIATION DOSE: CT Rad equipment meets quality standard of care and radiation dose reduction techniq ues were employed. CTDIvol: 13.3 mGy. DLP: 723 mGy-cm. LIMITATIONS: None. FINDINGS: LOWER CHEST: Pericardial effusion that measures 2.3 cm in diameter (unchanged in size comp ared to the CT from 08/10/2018). NON-CONTRASTED LIVER, SPLEEN, ADRENALS: Evaluation is limited due to the absence of intravenous contr ast. There is no evidence of hepatic steatosis. The spleen is normal in size. There is no adrenal mass. PANCREAS: No acute gross abnormality of the pancreas. GALLBLADDER: No abnormality that is apparent on CT. RIGHT KIDNEY AND URETER: Advanced atrophy. There is no hydronephrosis, nephrolithiasis, hydroureter or ureterolithiasis. LEFT KIDNEY AND URETER: Advanced atrophy. There is no hydronephrosis, nephrolithiasis, hydroureter o r ureterolithiasis. AORTA AND RETROPERITONEUM: There is a renal allograft in the right lower quadrant. The stranding rosalva und the allograft is unchanged. There is no hydronephrosis, nephrolithiasis, hydroureter or ureterol ithiasis. The abdominal aorta is normal in caliber. There is no retroperitoneal adenopathy, hemorrh age or mass. BOWEL AND PERITONEAL CAVITY: No bowel obstruction, bowel wall thickening or pericolonic/ perienteric inflammation. There is no mesenteric adenopathy, free intraperitoneal fluid or mesenteric/ omental i nflammation. APPENDIX: Normal. PELVIS, BLADDER, AND ABDOMINAL WALL:The urinary bladder is contracted. There is a trace amount of fr ee fluid in the cul de sac. There is no other abnormality of the uterus or adnexa that is apparent o n CT. BONES: No acute findings. OTHER: No other finding. IMPRESSION: 1. No acute intra-abdominal abnormality. 2. There is a renal allograft in the right lower quadrant. The stranding around the allograft is unc hanged. There is no hydronephrosis, nephrolithiasis, hydroureter or ureterolithiasis. 3. Pericardial effusion that measures 2.3 cm in diameter (unchanged in size compared to the CT from ). COMMENT: Quality ID # [id number]: Final reports with documentation of one or more dose reduction techniques (e.g., Automated exposure control, adjustment of the mA and/or kV according to patient size, use of iterative reconstruction technique) TECHNICAL DOCUMENTATION: JOB ID: [id number] [employer]- All Rights Reserved Reading location - IP/workstation name: [email or web address]
[2020-02-08] MEDS ORDERED: CEFTRIAXONE 1 GM/D5W RTU 1 GM/50 ML RTUPB IV ONE (15:54)
--- NOTE | 2020-02-08 17:21 | ER Document Report ---
ED General - General Chief Complaint: Urinary Problem Stated Complaint: URINARY PROBLEM Time Seen by Provider: 02/08/20 12:30 Mode of Arrival: Ambulatory Information source: Patient TRAVEL OUTSIDE OF THE [place] IN LAST 30 DAYS: No - HPI Notes: Patient presents with abdominal pain. She states is mainly centered around where her transplanted kidney is. She states that this feels like when she has had urinary tract infections in the past. She is had some nausea as well as fevers and generalized body aches. These body aches have been generalized and d iffuse. They are mild to moderate. They radiate throughout her body. They are constant. They are worse with movement and better with rest. Patient is a kidney transplant patient secondary to lupus. She states this transplant was in 2018. She states that she has had some vomiting and diarrhea as well she is also had some cough and congestion with the fevers and chills as mentioned above. - Related Data Allergies/Adverse Reactions: vancomycin Allergy (Verified 06/14/19 08:15) Generalized Itching Home Medications: Carvedilol 25mg BID. Mycophenolalec 250 BID. Prednisone 10mg Daily. Tacrolimos 1 mg PM, 5mg AM. Valgancyclovir 450 mg Daily Past Medical History - Social History Smoking Status: Never Smoker Frequency of alcohol use: None Drug Abuse: None Family History: Reviewed & Not Pertinent, DM, Hypertension - Past Medical History Cardiac Medical History: Reports: Hx Hypertension Denies: Hx Heart Attack Pulmonary Medical History: Denies: Hx Asthma Neurological Medical History: Denies: Hx Cerebrovascular Accident, Hx Seizures Renal/ Medical History: Denies: Hx Peritoneal Dialysis GI Medical History: Denies: Hx Hepatitis, Hx Hiatal Hernia, Hx Ulcer Skin Medical History: Reports Hx Cellulitis Infectious Medical History: Denies: Hx Hepatitis Past Surgical History: Reports: Hx Genitourinary Surgery - kidney transplant, Hx Gynecologic Surgery - Novasure procedure, Hx Kidney (Renal Surgery) - Kidney Transplant. Denies: Hx Mastectomy, Hx Open Heart Surgery, Hx Pacemaker - Immunizations Hx Diphtheria, Pertussis, Tetanus Vaccination: No Hx Pneumococcal Vaccination: 06/10/16 Review of Systems - Review of Systems Constitutional: Chills, Fever, Malaise, Weakness Cardiovascular: denies: Chest pain, Palpitations Respiratory: denies: Cough, Short of breath -: Yes All other systems reviewed and negative Physical Exam - Vital signs Vitals: Temp Pulse Resp BP Pulse Ox 100.5 F H 102 H 18 122/67 99 02/08/20 12:17 02/08/20 12:17 02/08/20 12:17 02/08/20 12:17 02/08/20 12:17 Interpretation: Tachycardic, Febrile - General General appearance: Appears well, Alert - HEENT Head: Normocephalic, Atraumatic Eyes: Normal Pupils: PERRL - Respiratory Respiratory status: No respiratory distress Chest status: Nontender Breath sounds: Normal Chest palpation: Normal - Cardiovascular Rhythm: Regular Heart sounds: Normal auscultation Murmur: No - Abdominal Inspection: Normal Distension: No distension Bowel sounds: Normal Tenderness: Tender - Mild diffuse tenderness mainly over the site of the transplanted kidney. Organomegaly: No organomegaly - Back Back: Normal, Nontender - Extremities General upper extremity: Normal inspection, Nontender, Normal color, Normal ROM, Normal temperature General lower extremity: Normal inspection, Nontender, Normal color, Normal ROM, Normal temperature, Normal weight bearing. No: Luis's sign - Neurological Neuro grossly intact: Yes Cognition: Normal Orientation: AAOx4 [place] Coma Scale Eye Opening: Spontaneous Donnie Coma Scale Verbal: Oriented [place] Coma Scale Motor: Obeys Commands Donnie Coma Scale Total: 15 Speech: Normal Motor strength normal: LUE, RUE, LLE, RLE Sensory: Normal - Psychological Associated symptoms: Normal affect, Normal mood - Skin Skin Temperature: Warm Skin Moisture: Dry Skin Color: Normal Course - Re-evaluation Re-evalutation: 02/08/20 17:18 Patient presents with fever chills and symptoms she states is consistent with urinary tract infection. Patient does have an obvious urinary tract infection by laboratories. CT shows no new changes. Patient's creatinine appears stable. Vital signs are stable. Patient states that she prefers to be discharged. I did offer the patient admission but she states she prefers to go home. This seems to be a reasonable disposition at this time. I did call and discussed this with the skin toggler, Dr. Foreman. He states if the patient seems stable that discharge with outpatient biotics was reasonable. I did give her 1 dose of IV Rocephin here and she states she does feel better. I will discharge the patient home to follow-up as an outpatient. - Vital Signs Vital signs: Temp Pulse Resp BP Pulse Ox 100.5 F H 102 H 18 122/67 99 02/08/20 12:17 02/08/20 12:17 02/08/20 12:17 02/08/20 12:17 02/08/20 12:17 - Laboratory Result Diagrams: 02/08/20 13:55 02/08/20 13:55 Laboratory results interpreted by me: 02/08/20 02/08/20 02/08/20 13:33 13:55 13:55 Hgb 11.6 L Hct 35.1 L MCH 26.9 L RDW 14.2 H Plt Count 84 L Lymph % (Auto) 6.3 L Absolute Neuts (auto) 8.5 H Seg Neutrophils % 88.1 H Chloride 111 H Carbon Dioxide 21 L BUN 31 H Creatinine 2.69 H Est GFR ( Amer) 25 L Est GFR (MDRD) Non-Af 20 L Glucose 159 H Urine Protein 100 H Urine Blood LARGE H Urine Nitrite POSITIVE H Urine Urobilinogen 4.0 H Ur Leukocyte Esterase MODERATE H - Diagnostic Test Radiology reviewed: Image reviewed, Reports reviewed Discharge - Discharge Clinical Impression: Kidney transplant recipient Urinary tract infection Qualifiers: Urinary tract infection type: site unspecified Hematuria presence: without hematuria Qualified Code(s): N39.0 - Urinary tract infection, site not specified Condition: Stable Disposition: HOME, SELF-CARE Instructions: Urinary Tract Infection ([facility]) Additional Instructions: Please call your transplant doctor as soon as possible to let them know you have a urinary tract infection and to discuss follow up Prescriptions: Cefdinir 300 mg PO BID 10 Days #20 capsule Hydrocodone/Acetaminophen [[place] 5-325 mg Tablet] 1 tab PO Q6 PRN 3 Days #12 tablet PRN Reason: Ondansetron [Zofran Odt 4 mg Tablet] 1 - 2 tab PO Q4H PRN #15 tab.rapdis PRN Reason: For Nausea/Vomiting Forms: Return to Work
[2020-02-08 17:38] VITALS: BP 137/88
== END 2020-02-08 17:49 | disposition home or self-care (01) ==
LOC: ER 12:12
DX: N39.0 Urinary tract infection, site not specified (principal); R10.9 Unspecified abdominal pain; I10 Essential (primary) hypertension; Z94.0 Kidney transplant status
CPT/HCPCS: 99285; 96361; 96375; 96365; 36415; 87040; 85025; 81025; 80053; 81001; 74176; A9270; J2270; J7030; J0696; S0119